=== PATIENT | female | born 1980 | race Caucasian/White ===

== ENCOUNTER 2022-05-24 08:37 | Outpatient (CLI) | payer OTHER, SELFPAY ==
--- NOTE | 2022-05-24 | USR_ITS ---
PROCEDURE INFORMATION: Exam: US Non-Invasive Physiologic Bilateral Lower Extremities Arteries, Complete Exam date and time: 05/24/2022 9:55 AM Age: 42 years old Clinical indication: Other: Abnormal foot color TECHNIQUE: Imaging protocol: Complete bilateral noninvasive physiologic studies of lower extremity arteries, 3 or more levels or single level study with provocative functional maneuvers. Images were documented and archived. Exam is complete. COMPARISON: No relevant prior studies available. FINDINGS: Right Ankle-Brachial Index: 1.12 Left Ankle-Brachial Index: 1.03 US/CV segpressure [facility] [id number] IMPRESSION: No evidence of stenosis or occlusion in the lower extremity.
== END 2022-05-24 08:38 | disposition home or self-care (01) ==
LOC: RAD 08:41
PROVIDERS: PCP Family Medicine; Visit Provider Family Medicine
DX: R23.8 Other skin changes (principal)
CPT/HCPCS: 93923

== ENCOUNTER 2022-06-08 13:25 | Outpatient (CLI) | payer OTHER, SELFPAY ==
--- NOTE | 2022-06-08 13:39 | US_ITS ---
WS: [id number] BILATERAL 3D TOMOSYNTHESIS DIGITAL DIAGNOSTIC MAMMOGRAPHY WITH CAD CLINICAL INFORMATION: RT BREAST NIPPLE DISCHARGE HISTORY: RIGHT bloody black discharge. BASELINE TECHNIQUE: Bilateral CC, MLO, and ML views. FINDINGS: Scattered fibroglandular densities bilaterally. Incidental punctate calcifications. No suspicious focal mass, asymmetry, calcifications, or architectural distortion. No evidence of gabbi gnancy. Ultrasound RIGHT areola described below. ULTRASOUND BREAST RIGHT TECHNIQUE: Ultrasound right breast focused area of concern. CLINICAL INFORMATION: RT BREAST NIPPLE DISCHARGE FINDINGS: Ultrasound RIGHT breast at the areola. Normal underlying parenchymal tissue. No suspicious cystic or solid lesions. No lesions to target for biopsy. US/US breast RT limited* [id number] IMPRESSION: BI-RADS: 2-Benign FOLLOW UP: 1 Year Follow-up Recommend return to annual screening mammography.
== END 2022-06-08 13:26 | disposition home or self-care (01) ==
PROVIDERS: PCP Family Medicine; Visit Provider Family Medicine
DX: N64.52 Nipple discharge (principal)
CPT/HCPCS: 76642; 77062; G0279

== ENCOUNTER → 2022-07-26 11:27 | Outpatient (BNVA) | payer OTHER, SELFPAY | PROVIDERS: PCP Family Medicine; Visit Provider Nurse Practitioner Family | DX: R06.02 Shortness of breath (principal) | CPT/HCPCS: 71046 ==

== ENCOUNTER 2022-08-22 17:32 | Emergency (ER) | payer OTHER, SELFPAY ==
[2022-08-22 17:44] VITALS: BP 162/102; PULSE 110; RESP 18; TEMP 36.7; O2SAT 96; BMI 33.2
--- NOTE | 2022-08-22 17:48 | W.ED.EXTPRO ---
HPI - Extremity Problem General: Chief complaint: Extremity Problem,Nontraumatic Stated complaint: left leg pain Time Seen by Provider: 08/22/22 17:34 History of Present Illness: 42-year-old female comes in today with complaints of pain in the left hip radiating down to her calf going on since Monday. Patient denies any fever. Patient denies any loss of bowel or bladder control. Patient was seen at urgent care on Monday and was recommended to be seen in the emergency department but at that time she strongly felt it was due to sciatica and did not seek further treatment. Today patient comes in due to the persistent discomfort. Patient appears in moderate pain. Patient reports improvement in symptoms when lying flat. Patient works at a desk job. Patient appears nontoxic. Patient reports a history of neuropathy in feet. Patient states that she has diabetes mellitus and controls it with diet. Associated symptoms: Deny chest pain, fever(s) or rash Review of Systems General: Reports: 10 or more systems reviewed and unremarkable except in HPI and below Const: Denies: fever(s) Card: Denies: chest pain Resp: Denies: dyspnea GI: Denies: nausea, vomiting, diarrhea or constipation : Denies: difficulty voiding or hematuria Musc: Reports: extremity pain; Denies: extremity swelling Skin/Breast: Denies: rash Neuro: Denies: weakness in extremities Physical Exam Const: COMMON NORMALS: alert HENMT: COMMON NORMALS: normocephalic HEAD & SCALP: normocephalic Neck/C-Spine: COMMON NORMALS: full ROM Resp: COMMON NORMALS: normal respiratory effort Cardio: COMMON NORMALS: regular rate RATE: regular rate GI: COMMON NORMALS: Soft to palpation PALPATION: Yes Soft to palpation : COMMON NORMALS: Yes no CVA tenderness BLADDER/KIDNEY EXAM: Yes no CVA tenderness Back/Pelvis: COMMON NORMALS: no CVA tenderness THORACIC SPINE/UPPER BACK: No thoracic spinal tenderness LUMBAR SPINE/LOWER BACK: No lumbar spinal tenderness and Yes straight leg raise positive left SACROILIAC JOINTS: Yes SI joints normal Extremity: COMMON NORMALS: normal to inspection Neuro: SENSORIUM/ORIENTATION: Yes alert Skin: COMMON NORMALS: turgor normal GENERAL SKIN EXAM: turgor normal Course Vital Signs: Vital signs: Vital Signs Temperature 98.0 F 08/22/22 17:44 Pulse Rate 94 08/22/22 19:02 Respiratory Rate 16 05/01/23 19:23 Blood Pressure 124/90 08/22/22 19:02 Pulse Oximetry 96 08/22/22 19:02 Oxygen Delivery Me thod Room Air 08/22/22 17:44 MDM - Extremity (Nontraumatic) Medical Decision Making 42-year-old female comes in today with complaints of pain radiating down the left leg. Patient denies any illness. Patient states symptoms been worse since Monday. On exam there is no palpable tenderness along the spine. Patient moves all extremities well. Distal pulses and sensation are intact. Patient does report neuropathy in bilateral feet. Vital signs are normal except for elevation in blood pressure at 162 systolic. Differential diagnosis includes but not limited to avascular necrosis of hip, intervertebral disc disease, facet arthritis, sacroiliac dysfunction, sciatica. X-ray of the hip was unremarkable. Laboratory values noted no significant abnormalities except for some mild elevation in CRP of 14. Believe patient has sciatica secondary to some nerve impingement. Patient was given medication to help control pain. We will start patient on gabapentin to see if that would help with the neuralgia, diclofenac for pain and inflammation, and hydrocodone for severe pain. Patient was recommended to stay as active as possible. Recommend follow-up with primary care for further evaluation and instructions. Recommend return to the ER for new concerns. Patient reported understanding agreed to plan. Patient was stable no signs of serious illness or injury was noted. Lab Data 08/22/22 18:20 08/22/22 18:20 Radiology Impressions Hip/Pelvis X-Ray 08/22/22 17:55 IMPRESSION: No acute findings. Laboratory Results WBC 8.4 10^3/uL (4.0-10.0) 08/22/22 18:20 RBC 4.91 10^6/uL (4.1-5.3) 08/22/22 18:20 Hgb 15.3 g/dL (11.5-15.3) 08/22/22 18:20 Hct 46.3 % (37.0-47.0) 08/22/22 18:20 MCV 94.3 fl (81-99) 08/22/22 18:20 MCH 31.2 pg (28.0-34.0) 08/22/22 18: MCHC 33.0 g/dL (30.0-36.0) 08/22/22 18:20 RDW 14.1 % (12.1-15.1) 08/22/22 18:20 Plt Count 186 10^3/cmm (130-400) 08/22/22 18:20 MPV 10.0 fL (7.4-10.4) 08/22/22 18:20 Neut % (Auto) 56.4 % 08/22/22 18:20 Lymph % (Auto) 37.2 % 08/22/22 18:20 [place] % (Auto) 5.1 % 08/22/22 18:20 Eos % (Auto) 0.6 % 08/22/22 18:20 Baso % (Auto) 0.6 % 08/22/22 18:20 Neut # (Auto) 4.74 10^3/uL (1.8-7.7) 08/22/22 18:20 Lymph # (Auto) 3.1 10^3/uL (0.8-4.8) 08/22/22 18:20 [place] # (Auto) 0.4 10^3/uL (0.2-0.9) 08/22/22 18:20 Eos # (Auto) 0.1 10^3/uL (0.0-0.8) 08/22/22 18:20 Baso # (Auto) 0.1 10^3/uL (0.0-0.1) 08/22/22 18:20 Nucleated RBC % (auto) 0 % 08/22/22 18:20 Nucleated RBCs # 0.0 /100WBC 08/22/22 18:20 ESR 7 mm/hr (0-15) 08/22/22 18:20 D-Dimer 0.30 ug/mIFEU (0-0.59) 08/22/22 18:20 Sodium 140 mmol/L (136-145) 08/22/22 18:20 Potassium 3.6 mmol/L (3.5-5.1) 08/22/22 18:20 Chloride 105 mmol/L (98-107) 08/22/22 18:20 Carbon Dioxide 25 mmol/L (22-29) 08/22/22 18:20 Anion Gap 13.6 (5-19) 08/22/22 18:20 BUN 8 mg/dL (6-20) 08/22/22 18:20 Creatinine 0.7 mg/dL (0.5-0.9) 08/22/22 18:20 GFR Calculation 92.7 mL/min (90-130) 08/22/22 18:20 Glucose 108 mg/dL (65-115) 08/22/22 18:20 Calculated Osmolality 289 mOsm/kg (285-295) 08/22/22 18:20 Calcium 8.9 mg/dL (8.5-10.5) 08/22/22 18:20 Total Bilirubin 0.4 mg/dL (0.15-1.2) 08/22/22 18:20 AST 15 U/L (0-32) 08/22/22 18:20 ALT 11 U/L (0-33) 08/22/22 18:20 Alkaline Phosphatase 73 U/L (35-105) 08/22/22 18:20 C-Reactive Protein 14.7 mg/L (0.0-4.9) H 08/22/22 18:20 Total Protein 6.9 g/dL (6.6-8.7) 08/22/22 18:20 Albumin 4.1 g/dL (3.5-5.2) 08/22/22 18:20 Globulin 2.8 g/dL (1.3-4.6) 08/22/22 18:20 Discharge Plan Discharge Patient Disposition: Home Clinical Impression: Radiculopathy Qualifiers: Spinal region: lumbosacral Qualified Code(s): M54.17 - Radiculopathy, lumbosacral region Condition: Stable Prescriptions: New gabapentin 300 mg capsule 300 mg PO BID Qty: 20 0RF hydrocodone-acetaminophen 5-325 mg tablet 1 tab PO Q8H PRN (Reason: pain (scale score 7-10)) Qty: 7 0RF diclofenac sodium 75 mg tablet,delayed release (DR/EC) 75 mg PO BID Qty: 20 0RF Rx Instructions: do not take with naproxen or ibuprofen Discharge Orders: Discharge ED (Routine); Ordered 08/22/22 Ordered By: Clayton Garcia Referrals: Lisa Love MD [Primary Care Provider] - Discharge Diet: Usual diet Discharge Activity: Increase activity as tolerated Patient Instructions: Sciatica (ED), Opioid Safety, Pain Management Activity Restrictions/Additional Instructions: Activity as tolerated. Gentle stretching and range of motion exercises. Ice or heat to the low back and hip area to help with pain and discomfort. Drink plenty of water with medication. Use gabapentin 300 mg 2 times a day for nerve pain. Use diclofenac 75 mg 1 tablet twice a day for pain and inflammation. Use hydrocodone as needed for severe pain. Use acetaminophen for further pain relief. Follow-up with primary care for further evaluation and treatment. Return to emergency department for new concerns or worsening symptoms. Coding Level of Care Code ED Network Support Specialist for Bebe Sims
--- NOTE | 2022-08-22 17:55 | XRR_ITS ---
PROCEDURE INFORMATION: Exam: XR Left Hip Exam date and time: 08/22/2022 6:04 PM Age: 42 years old Clinical indication: Hip pain; Left hip; Additional info: Radiating left hip pain TECHNIQUE: Imaging protocol: Radiologic exam of the left hip. Views: 2 or 3 views hip with pelvis when performed. COMPARISON: No relevant prior studies available. FINDINGS: Bones/joints: Unremarkable. No acute fracture. Soft tissues: Unremarkable. XR/XR hip LT 2-3V wo/w pel* [id number] IMPRESSION: No acute findings.
[2022-08-22 18:29] LABS: Basophils # 0.1 10^3/uL (0.0-0.1); Basophils % 0.6 %; Eosinophils # 0.1 10^3/uL (0.0-0.8); Eosinophils % 0.6 %; Hematocrit 46.3 % (37.0-47.0); Hemoglobin 15.3 g/dL (11.5-15.3); Lymphocytes # 3.1 10^3/uL (0.8-4.8); Lymphocytes % 37.2 %; Mean Corpuscular Hemoglobin 31.2 pg (28.0-34.0); Mean Corpuscular Volume 94.3 fl (81-99); Monocytes # 0.4 10^3/uL (0.2-0.9); Monocytes % 5.1 %; Neutrophils # 4.74 10^3/uL (1.8-7.7); Neutrophils % 56.4 %; Nucleated Red Blood Cells % 0 %; Platelet Count 186 10^3/cmm (130-400); Red Blood Count 4.91 10^6/uL (4.1-5.3); Red Cell Distribution Width 14.1 % (12.1-15.1); White Blood Count 8.4 10^3/uL (4.0-10.0)
[2022-08-22 18:31] LABS: Erythrocyte Sedimentation Rate 7 mm/hr (0-15)
[2022-08-22] MEDS: ketorolac 30 mg/mL INJ 15 MG IVP (18:44)
[2022-08-22] MEDS: ondansetron 2 mg/ML SDV 2 mL 4 MG IVP (18:45)
[2022-08-22] MEDS: morphine 4 mg/mL SDV 1 mL IVP ×2 (18:45→19:23)
[2022-08-22 18:46] LABS: Alanine Aminotransferase 11 U/L (0-33); Albumin Level 4.1 g/dL (3.5-5.2); Alkaline Phosphatase 73 U/L (35-105); Anion Gap 13.6 (5-19); Aspartate Amino Transferase 15 U/L (0-32); Blood Urea Nitrogen 8 mg/dL (6-20); C Reactive Protein 14.7 mg/L (0.0-4.9); Calcium 8.9 mg/dL (8.5-10.5); Carbon Dioxide 25 mmol/L (22-29); Chloride 105 mmol/L (98-107); Globulin 2.8 g/dL (1.3-4.6); Glomerular Filtration Rate 92.7 mL/min (90-130); Glucose 108 mg/dL (65-115); Osmolality Calculated 289 mOsm/kg (285-295); Potassium 3.6 mmol/L (3.5-5.1); Sodium 140 mmol/L (136-145); Total Bilirubin 0.4 mg/dL (0.15-1.2); Total Protein 6.9 g/dL (6.6-8.7)
[2022-08-22 19:02] VITALS: BP 124/90; PULSE 94; RESP 14; O2SAT 96
[2022-08-22] MEDS: gabapentin 300 mg Capsule PO (19:22)
[2022-08-22 19:23] VITALS: RESP 16
[2022-08-22 19:48] VITALS: BP 130/72; PULSE 86; RESP 16; O2SAT 99
== END 2022-08-22 19:50 | disposition home or self-care (01) ==
PROVIDERS: Emergency Provider Nurse Practitioner Family; PCP Family Medicine
DX: M54.17 Radiculopathy, lumbosacral region (principal)
CPT/HCPCS: 36415; 73502; 80053; 85025; 85378; 85651; 86140; 96374; 96375; 96376; 99284; J1885; J2270; J2405

== ENCOUNTER 2022-10-28 07:16 | Outpatient (CLI) | payer OTHER, SELFPAY ==
--- NOTE | 2022-10-28 07:27 | MR_ITS ---
WS: [id number] MRI LUMBAR SPINE NONCONTRAST HISTORY: Sciatica, pain IN L LEG COMPARISON: None available. TECHNIQUE: Sagittal and axial multisequence imaging is submitted. Mild straightening of the normal lumbar lordosis. No fractures or marrow edema. Disc spaces are mildly narrowed and desiccated, most significant at L3-4, L4-5 and L5-S1. Conus terminates normally at L1-2 disc level. L1-L2: Normal. L2-L3: Normal. L3-L4: Mild annular disc bulge with a central disc protrusion. There is mild encroachment upon the ve ntral thecal sac and the subarticular recesses. Mild disc contact upon the traversing L4 nerve roots. Disc is slightly asymmetrically bulging to the LEFT with no additional stenosis. L4-L5: Diffuse moderate annular disc bulging with mild ligamentum flavum and facet arthritis. There i s a small central disc protrusion contacting the ventral thecal sac. Mild central and bilateral subar ticular recess stenosis. Disc contacts the traversing L5 nerve roots. Mild disc encroachment into the subarticular recesses. L5-S1: Diffuse annular disc bulging with moderate central disc protrusion. Disc protrusion extends gr eatest to the LEFT and extends into the LEFT subarticular recess. There is contact on the LEFT sean sing S1 nerve root. S1 nerve root is being displaced by the disc protrusion. Disc bulging versus prot rusions and osteophytes extend into the foramina. Moderate bilateral foraminal stenosis with mild tamir tral stenosis. MR/MR lumbar spine wo con* [id number] IMPRESSION: 1. Moderate size central to LEFT subarticular recess disc protrusion at L5-S1. Disc contacts and displaces the LEFT S1 nerve root in the subarticular recess. 2. Mild central with moderate bilateral foraminal stenosis at L5-S1 due to com bination of disc disease and osteophytes and facet arthritis. 3. Disc bulging with a central disc protrusion at L3-4. Mild disc contact on t he traversing L4 nerve roots. 4. Diffuse disc bulging with a small central disc protrusion at L4-5. There is mild disc contact on the traversing L5 nerve roots and subarticular recesses.
--- NOTE | 2022-10-28 08:11 | XR_ITS ---
WS: [id number] Right knee, 3 views, 10/28/2022 Clinical Data: PAIN IN R KNEE Comparison: None. Findings: No fractures or dislocations are seen. The joint spaces are normal. The patella is intact. The soft t issues are unremarkable. XR/XR knee RT 3V* [id number] Impression: Negative right knee. Kellgren-Marcello Classification: grade 0 (none): definite absence of x-ray darrell nges of osteoarthritis
== END 2022-10-28 07:17 | disposition home or self-care (01) ==
PROVIDERS: PCP Family Medicine; Visit Provider Family Medicine
DX: M51.17 Intervertebral disc disorders with radiculopathy, lumbosacral region (principal); M48.07 Spinal stenosis, lumbosacral region; M25.562 Pain in left knee
CPT/HCPCS: 72148; 73562

== ENCOUNTER 2022-11-07 13:08 | Outpatient (CLI) | payer OTHER, SELFPAY ==
--- NOTE | 2022-11-07 13:41 | USCV_ITS ---
Emani Dixon Age: 42 Gender: F : 1980 Exam Date: 11/07/2022 14:00 Ordering Phys: Lisa Love MD Technologist: [place] [facility] [place]: [place] BP: 125 / 63 HR: 62 Rhythm: Sinus Technical Quality: Adequate MEASUREMENTS (Male / Female) Normal Values 2D ECHO LV Chamber Size 4.8 cm RV Chamber Size 2.8 cm LVOT Diameter 2.0 cm LV Ejection Fraction MOD 2C 53.9 % LV Ejection Fraction 2C AL 55.4 % LA Diameter 3.3 cm LA Width 4.1 cm LA Height 4.6 cm RA Width 3.2 cm RA Height 4.2 cm Aorta at Sinotubular Diameter 2.6 cm IVC Diameter 1.7 cm M-MODE Aortic Annulus Diameter 3.1 cm LA Ao Ratio MM 1.1 MV E Point Septal Separation 0.5 cm DOPPLER AV Peak Velocity 146.0 cm/s LVOT Peak Velocity 105.0 cm/s AV Area Cont Eq vti 2.4 cm squared AV Area Cont Eq pk 2.3 cm squared MV Peak Velocity 88.0 cm/s MV Area PHT 3.7 cm squared Mitral E to A Ratio 1.3 MV E' Velocity 58.0 cm/s Mitral E to MV E' Ratio 8.8 Mitral E to LV E' Lateral Ratio 7.2 Mitral E to LV E' Septal Ratio 11.5 TR Peak Velocity 114.0 cm/s TR Peak Gradient 5.2 mmHg TV Peak E Velocity 83.0 cm/s Right Atrial Pressure 3.0 mmHg Pulmonary Artery Systolic Pressu 8.2 mmHg PV Peak Velocity 79.0 cm/s FINDINGS Left Ventricle Normal left ventricular size, systolic function and wall thickness, with no regional wall motion abnormalities. Left ventricular ejection fraction is estimated at 65 %. Normal diastolic function. Right Ventricle Normal right ventricular size and systolic function. Right ventricular systolic pressure 8.2 mmHg. Right Atrium Normal right atrial size. 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 Left Atrium Mildly increased left atrial size. Mitral Valve Structurally normal mitral valve. No mitral valve stenosis. Trace mitral valve regurgitation. Aortic Valve Structurally normal trileaflet aortic valve. No aortic valve stenosis. No aortic valve regurgitation. Tricuspid Valve Structurally normal tricuspid valve. No tricuspid valve stenosis. Trace tricuspid valve regurgitation. Pulmonic Valve Pulmonic valve not well visualized. No pulmonary valve stenosis. Trace pulmonary valve regurgitation. Pericardium No pericardial effusion. Aorta Normal size aortic root and proximal ascending aorta. IVC Normal IVC dimension with >50% respiratory change of the inferior vena cava. CONCLUSIONS 1. Normal left ventricular size, systolic function and wall thickness, with no regional wall motion abnormalities. Left ventricular ejection fraction is estimated at 65 %. Normal diastolic function. 2. 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 3. No prior similar studies to compare. Naomi White MD (Electronically Signed) Final Date: 11 November 2022 23:31 S
== END 2022-11-07 13:09 | disposition home or self-care (01) ==
PROVIDERS: PCP Family Medicine; Visit Provider Family Medicine
DX: R60.9 Edema, unspecified (principal)
CPT/HCPCS: 93306

== ENCOUNTER 2023-02-04 13:02 | Emergency (ER) | payer OTHER, SELFPAY ==
[2023-02-04 13:05] VITALS: BP 140/96; PULSE 93; RESP 20; TEMP 36.7; O2SAT 97; BMI 32.8
--- NOTE | 2023-02-04 13:14 | ED_ITS ---
HPI - Nausea/Vomiting/Diarrhea General: Chief complaint: Nausea/Vomiting/Diarrhea Stated complaint: N/V Time Seen by Provider: 02/04/23 13:09 Source: patient Mode of arrival: ambulatory History of Present Illness: 42-year-old female presents emergency room with nausea vomiting for the last 6 hours. No fever sweats chills no cough no shortness of breath is a history of Type II diabetes mellitus. Patient having bilious vomit localizes pain to the right lower quadrant. No hematochezia melena hematemesis coffee-ground emesis no dysuria urgency or frequency MD elicited complaint: nausea and vomiting Onset (ago): hour(s) (6) Description of vomiting: bilious Associated nausea: Yes Associated abdominal pain: Yes Location of pain: RLQ Severity: moderate Quality: cramping Exacerbating factors: none Relieving factors: none Associated symtoms: Reports anorexia and nausea; Denies altered mental status, anxiety, bloating, change in vision, chest pain, cough, diaphoresis, decreased urine output, dizziness, dysuria, epistaxis, fatigue, fecal incontinence, fevers/chills, headache(s), malaise, myalgias, numbness, palpitations, rash, short of breath, syncope, tenesmus, tinnitus or weakness Review of Systems Const: Denies: fever(s), chills, fatigue, malaise or diaphoresis Eyes: Denies: change in vision ENMT: Denies: tinnitus or epistaxis Card: Denies: chest pain, palpitations or syncope Resp: Denies: dyspnea GI: Reports: nausea; Denies: abdominal pain, bloating or fecal incontinence : Denies: dysuria, urinary frequency or urinary urgency Musc: Denies: neck pain or back pain Skin/Breast: Denies: rash Neuro: Denies: headache(s) or dizziness Psych: Denies: anxiety PFSH ED PFSH: Family History Denies family history of Diabetes CAD (coronary artery disease) Cancer Hypertension Stroke Social History Smoking and tobacco/nicotine status: current every day tobacco/nicotine user cigarettes Packs smoked per day: 1 Years cigarettes smoked: 30 Alcohol intake: current Alcohol intake frequency: 0-2 Drinks per Day Substance/Drug Use: never Lives independently: Yes Household members: none Housing: House Marital status: Single Number of children: 0 Pets and animals: Yes Pets & animals: cat(s) Physical Exam Const: EXAM LIMITATIONS: no altered mental status GENERAL APPEARANCE: cooperative and comfortable ORIENTATION/CONSCIOUSNESS: Yes awake, Yes oriented to person, Yes oriented to place and Yes oriented to time HENMT: COMMON NORMALS: normocephalic, atraumatic and hearing grossly normal bilaterally HEAD & SCALP: normocephalic and atraumatic Resp: COMMON NORMALS: normal respiratory effort, No retractions, No use of accessory muscles and clear to auscultation bilaterally AUSCULTATION: clear to auscultation bilaterally Cardio: COMMON NORMALS: regular rate, regular rhythm and No murmurs present (Cardio) RATE: regular rate RHYTHM: regular rhythm GI: COMMON NORMALS: No hepatosplenomegaly present AUSCULTATION: Yes normoactive bowel sounds PALPATION: Yes Tenderness to palpation present (GI) Details: RLQ, No Guarding due to palpation present (GI) and Yes No hepatosplenomegaly present OTHER: No peritoneal signs Extremity: COMMON NORMALS: normal to inspection, capillary refill normal and no calf tenderness GENERAL: Yes edema (Lower extremity.) Neuro: SENSORIUM/ORIENTATION: Yes oriented to person, Yes oriented to place and Yes oriented to time Skin: COMMON NORMALS: no rashes or lesions noted GENERAL SKIN EXAM: no rashes or lesions noted Course Vital Signs: Vital signs: Vital Signs Temperature 98.0 F 02/04/23 13:05 Pulse Rate 77 02/04/23 16:01 Respiratory Rate 18 02/04/23 16:01 Blood Pressure 127/67 02/04/23 16:01 Pulse Oximetry 99 02/04/23 16:01 Oxygen Delivery Me thod Room Air 02/04/23 13:05 MDM - Nausea/Vomiting/Diarrhea Medical Decision Making Labs and imaging no acute findings. Very mild elevation in anion gap patient given fluids is feeling better. Discharged home with promethazine to use as needed return if has further problems. Clear liquid diet and advance as tolerated Lab Data 02/04/23 13:15 02/04/23 13:42 Radiology Impressions Abdomen/Pelvis CT 02/04/23 13:22 IMPRESSION: 1. Limited noncontrast examination without CT evidence of acute intra-abdominal or pelvic pathology. 2. Additional findings, as above. Laboratory Results WBC 10.62 10^3/uL (3.29-11.43) 02/04/23 13:15 RBC 5.66 10^6/uL (3.85-5.65) H 02/04/23 13:15 Hgb 17.60 g/dL (11.27-16.99) H 02/04/23 13:15 Hct 51.9 % (36-47) H 02/04/23 13:15 MCV 91.7 fl (85-98) 02/04/23 13:15 MCH 31.1 pg (27-33) 02/04/23 13:15 MCHC 33.9 g/dL (30-55) 02/04/23 13:15 RDW 15.3 % (12.1-15.1) H 02/04/23 13:15 Plt Count 204 10^3/cmm (157-399) 02/04/23 13:15 MPV 10.6 fL (7.4-10.4) H 02/04/23 13:15 Neut % (Auto) 84.5 % 02/04/23 13:15 Lymph % (Auto) 11.3 % 02/04/23 13:15 [place] % (Auto) 3.3 % 02/04/23 13:15 Eos % (Auto) 0.0 % 02/04/23 13:15 Baso % (Auto) 0.6 % 02/04/23 13:15 Neut # (Auto) 8.98 10^3/uL (1.8-7.7) H 02/04/23 13:15 Lymph # (Auto) 1.2 10^3/uL (0.8-4.8) 02/04/23 13:15 [place] # (Auto) 0.4 10^3/uL (0.2-0.9) 02/04/23 13:15 Eos # (Auto) 0.0 10^3/uL (0.0-0.8) 02/04/23 13:15 Baso # (Auto) 0.1 10^3/uL (0.0-0.1) 02/04/23 13:15 Nucleated RBC % (auto) 0 % 02/04/23 13:15 Nucleated RBCs # 0.0 /100WBC 02/04/23 13:15 Sodium 141 mmol/L (136-145) 02/04/23 13:42 Potassium 4.1 mmol/L (3.5-5.1) 02/04/23 13:42 Chloride 103 mmol/L (98-107) 02/04/23 13:42 Carbon Dioxide 22 mmol/L (22-29) 02/04/23 13:42 Anion Gap 20.1 (5-19) H 02/04/23 13:42 BUN 7 mg/dL (6-20) 02/04/23 13:42 Creatinine 0.7 mg/dL (0.5-0.9) 02/04/23 13:42 GFR Calculation 92.7 mL/min (90-130) 02/04/23 13:42 Glucose 165 mg/dL (65-115) H 02/04/23 13:42 Calculated Osmolality 294 mOsm/kg (285-295) 02/04/23 13:42 Calcium 9.5 mg/dL (8.5-10.5) 02/04/23 13:42 Total Bilirubin 0.8 mg/dL (0.15-1.2) 02/04/23 13:42 AST 15 U/L (0-32) 02/04/23 13:42 ALT 12 U/L (0-33) 02/04/23 13:42 Alkaline Phosphatase 84 U/L (35-105) 02/04/23 13:42 Total Protein 7.5 g/dL (6.6-8.7) 02/04/23 13:42 Albumin 4.8 g/dL (3.5-5.2) 02/04/23 13:42 Globulin 2.7 g/dL (1.3-4.6) 02/04/23 13:42 Lipase 20 U/L (13-60) 02/04/23 13:42 HCG, Qual Negative (Negative) 02/04/23 13:42 All radiology interpretation(s) finalized by discharge Discharge Plan Discharge Patient Disposition: Home Clinical Impression: Nausea and vomiting, Gastroenteritis Condition: Stable Prescriptions: New promethazine 25 mg tablet 25 mg PO Q6H PRN (Reason: nausea and vomiting) Qty: 20 0RF No Action gabapentin 300 mg capsule 300 mg PO TID hydrocodone-acetaminophen 5-325 mg tablet 1 tab PO Q8H PRN (Reason: pain (scale score 7-10)) Qty: 7 0RF Discharge Orders: Discharge ED (Routine); Ordered 02/04/23 Ordered By: Boris Rebollar Referrals: Lisa Love MD [Primary Care Provider] - Discharge Diet: Clear Liquid Discharge Activity: Increase activity as tolerated Patient Instructions: Gastroenteritis (ED), Opioid Safety, Pain Management Coding Level of Care Code ED Marketing Automation Analyst for Bebe Sims
[2023-02-04 13:21] LABS: Basophils # 0.1 10^3/uL (0.0-0.1); Basophils % 0.6 %; Hematocrit 51.9 % (36-47); Lymphocytes # 1.2 10^3/uL (0.8-4.8); Lymphocytes % 11.3 %; Mean Corpuscular HGB Conc 33.9 g/dL (30-55); Mean Corpuscular Hemoglobin 31.1 pg (27-33); Mean Corpuscular Volume 91.7 fl (85-98); Mean Platelet Volume 10.6 fL (7.4-10.4); Monocytes # 0.4 10^3/uL (0.2-0.9); Monocytes % 3.3 %; Neutrophils # 8.98 10^3/uL (1.8-7.7); Neutrophils % 84.5 %; Nucleated Red Blood Cells % 0 %; Platelet Count 204 10^3/cmm (157-399); Red Blood Count 5.66 10^6/uL (3.85-5.65); Red Cell Distribution Width 15.3 % (12.1-15.1); White Blood Count 10.62 10^3/uL (3.29-11.43)
--- NOTE | 2023-02-04 13:22 | CTR_ITS ---
PROCEDURE INFORMATION: Exam: CT Abdomen And Pelvis Without Contrast Exam date and time: 02/04/2023 2:45 PM Age: 42 years old Clinical indication: Nausea and vomiting; Additional info: Abdominal pain TECHNIQUE: Imaging protocol: Computed tomography of the abdomen and pelvis without contrast. Axial, coronal and sagittal reformatted images were created and reviewed. Radiation optimization: All CT scans at this facility use at least one of these dose optimization techniques: automated exposure control; mA and/or kV adjustment per patient size (includes targeted exams where dose is matched to clinical indication); or iterative reconstruction. REPORTING DATA: Count of CT and Cardiac NM exams in prior 12 months: This patient has received 0 known CTs and 0 known cardiac nuclear medicine studies in the 12 months prior to the current study. COMPARISON: CR XR hip LT 2-3V wo/w pel* [id number] 08/22/2022 6:04 PM RADIATION DOSE METRICS: Total DLP (mGy-cm): 940.55 FINDINGS: Diaphragm: Small hiatal hernia. Liver: Unremarkable. Gallbladder and bile ducts: Subtle dependent hyperattenuation in the gallbladder lumen, possibly secondary to sludge and/or small stones. Pancreas: Unremarkable. Spleen: Mild splenomegaly. Adrenal glands: Normal. No mass. Kidneys and ureters: No mass. No radiodense calculi. No hydronephrosis. Stomach and bowel: No bowel wall thickening. No obstruction. No pneumatosis. Appendix: Normal. Intraperitoneal space: Trace nonspecific free pelvic fluid, likely physiologic. No organized fluid collection. No free air. Vasculature: Unremarkable. No aneurysm. Lymph nodes: No pathologically enlarged lymph nodes. Urinary bladder: Unremarkable as visualized. Reproductive: Unremarkable. Bones/joints: No acute osseous abnormality. Mild degenerative changes. Soft tissues: Nonspecific soft tissue stranding in the subcutaneous tissues along the posterior aspect of the lower lumbar spine, nonspecific in appearance. CT/CT abdomen pelvis wo con [id number] IMPRESSION: 1. Limited noncontrast examination without CT evidence of acute intra-abdominal or pelvic pathology. 2. Additional findings, as above.
[2023-02-04] MEDS: ondansetron 2 mg/ML SDV 2 mL 4 MG IVP (13:41)
[2023-02-04 14:01] VITALS: BP 106/92; PULSE 66; RESP 20; O2SAT 94
[2023-02-04 14:30] LABS: HCG, Serum Qual Negative (Negative)
[2023-02-04 14:39] LABS: Alanine Aminotransferase 12 U/L (0-33); Albumin Level 4.8 g/dL (3.5-5.2); Alkaline Phosphatase 84 U/L (35-105); Anion Gap 20.1 (5-19); Aspartate Amino Transferase 15 U/L (0-32); Blood Urea Nitrogen 7 mg/dL (6-20); Calcium 9.5 mg/dL (8.5-10.5); Carbon Dioxide 22 mmol/L (22-29); Chloride 103 mmol/L (98-107); Globulin 2.7 g/dL (1.3-4.6); Glomerular Filtration Rate 92.7 mL/min (90-130); Glucose 165 mg/dL (65-115); Lipase 20 U/L (13-60); Osmolality Calculated 294 mOsm/kg (285-295); Potassium 4.1 mmol/L (3.5-5.1); Sodium 141 mmol/L (136-145); Total Bilirubin 0.8 mg/dL (0.15-1.2); Total Protein 7.5 g/dL (6.6-8.7)
[2023-02-04 15:00] VITALS: BP 150/103; PULSE 64; RESP 20; O2SAT 99
[2023-02-04] MEDS: promethazine 25 mg/mL SDV 1 mL IM (15:43)
[2023-02-04] MEDS: sodium chloride 0.9% 1,000 ML 999 ML IV (15:46)
[2023-02-04 16:01] VITALS: BP 127/67; PULSE 77; RESP 18; O2SAT 99
== END 2023-02-04 17:11 | disposition home or self-care (01) ==
PROVIDERS: Emergency Provider Family Medicine; PCP Family Medicine
DX: K52.9 Noninfective gastroenteritis and colitis, unspecified (principal); F17.210 Nicotine dependence, cigarettes, uncomplicated
CPT/HCPCS: 74176; 80053; 83690; 84703; 85025; 96372; 99285; J2405; J2550; J7030

== ENCOUNTER → 2023-02-28 09:23 | Outpatient (BNVA) | payer OTHER, SELFPAY | PROVIDERS: PCP Family Medicine; Referring Provider Thoracic Surgery (Cardiothoracic Vascular Surgery); Visit Provider Internal Medicine | DX: E11.9 Type 2 diabetes mellitus without complications (principal); R79.89 Other specified abnormal findings of blood chemistry; Z83.49 Family history of other endocrine, nutritional and metabolic diseases | CPT/HCPCS: 36415; 82627 ==

== ENCOUNTER 2023-04-07 07:15 | Outpatient (CLI) | payer OTHER, SELFPAY ==
--- NOTE | 2023-04-07 07:17 | US_ITS ---
WS: [id number] Exam: US abdomen limited [id number] Date/Time of Exam: 04/07/2023 7:18 AM Reason For Exam: TYPE 2 DN W/O COMPLICATIONS There are stones and sludge like material in the gallbladder. No sign of gallbladder wall thickening or edema. The common bile duct is not dilated and measures 2.5 mm in greatest diameter. The liver is not enlarged and measures 14.87 cm in greatest dimension. No intrahepatic ductal dilatation or hepati c mass. The portal vein demonstrates hepatopetal flow. The IVC shows patent flow. The abdominal aorta is normal in caliber. The pancreas is unremarkable as visualized. Unremarkable RIGHT kidney measures 11.67 x 5 x 5.42 cm. No mass or ascites in the RIGHT abdomen. IMPRESSION: 1. Tiny stones and sludge like material in the gallbladder. No sign of acute cholecystitis. 2. No other significant finding in the RIGHT abdomen.
== END 2023-04-07 07:16 | disposition home or self-care (01) ==
LOC: RAD 07:15
PROVIDERS: PCP Family Medicine; Visit Provider Family Medicine
DX: E11.9 Type 2 diabetes mellitus without complications (principal); K80.20 Calculus of gallbladder without cholecystitis without obstruction
CPT/HCPCS: 76705

== ENCOUNTER 2023-06-29 08:26 | Outpatient (CLI) | payer OTHER, SELFPAY ==
--- NOTE | 2023-06-29 08:32 | MM_ITS ---
WS: [id number] BILATERAL 3D TOMOSYNTHESIS DIGITAL DIAGNOSTIC MAMMOGRAPHY WITH CAD CLINICAL INFORMATION: NIPPLE DISCHARGE HISTORY: Bilateral bloody nipple discharge COMPARISON: 06/08/2022 TECHNIQUE: Bilateral CC, MLO, and ML views. FINDINGS: Scattered fibroglandular densities bilaterally. Subareolar trabecular thickening in both breasts. Ult rasound both breast is pending. Incidental punctate calcifications. No other suspicious mammographic abnormalities. ULTRASOUND BREAST BILATERAL TECHNIQUE: Ultrasound bilateral breast focused area of concern. CLINICAL INFORMATION: NIPPLE DISCHARGE COMPARISON: 06/08/2022 FINDINGS: RIGHT BREAST: Ultrasound subareolar RIGHT breast. Subareolar ductal ectasia with internal debris. No cystic or solid lesions to target for biopsy LEFT BREAST: Ultrasound subareolar LEFT breast.Subareolar ductal ectasia with internal debris. No cys tic or solid lesions to target for biopsy IMPRESSION: MM/[place] [id number] BI-RADS: 2-Benign FOLLOW UP: 1 Year Follow-up Recommend return to annual screening mammography.
== END 2023-06-29 08:27 | disposition home or self-care (01) ==
LOC: RAD 08:28
PROVIDERS: PCP Family Medicine; Visit Provider Family Medicine
DX: N60.42 Mammary duct ectasia of left breast (principal); N60.41 Mammary duct ectasia of right breast
CPT/HCPCS: 76642; 77062; G0279

== ENCOUNTER 2023-11-23 15:15 | Outpatient (CLI) | payer OTHER, SELFPAY ==
--- NOTE | 2023-11-23 15:33 | US_ITS ---
WS: [id number] ULTRASOUND ABDOMEN CLINICAL INFORMATION: PAIN. CHOLELITHIASIS COMPARISON: Ultrasound 2022 FINDINGS: Technically difficult study due to body habitus Liver Size: Upper limits of normal Craniocaudal length: 15.9 cm. Echogenicity: Coarse compatible with fatty infiltration Surface nodularity: None. Mass (size and location): None. Bile ducts Intrahepatic ducts: Normal. Common bile duct diameter: 0.6 cm. Gallbladder Cholelithiasis Gallstones: Present Gallbladder sludge: None. Gallbladder wall thickening: None. Pericholecystic fluid: None. Sonographic Berry sign: Absent. Pancreas Normal as visualized. Spleen Splenomegaly: Mild Craniocaudal length: 12.1 cm. Right kidney: Normal. Hydronephrosis: None. Size: 11.4 cm x 5.3 cm x 5.7 cm Left kidney: Normal. Hydronephrosis: None. Size: 10.4 cm x 5.1 cm x 5.1 cm. Abdominal aorta and IVC Visualized portions are normal. Ascites: None. US/US abdomen complete* [id number] IMPRESSION: 1. Liver size upper limits of normal with fatty infiltration. 2. Cholelithiasis. No gallbladder wall thickening or pericholecystic fluid. 3. Common bile duct upper limits of normal at 6 mm. This is progressed compare d to the prior ultrasound 2022. Recommend further evaluation with MRCP. Recomme nd correlation with biliary function studies. 4. Mild splenomegaly. 5. No hydronephrosis in either kidney.
== END 2023-11-23 15:17 | disposition home or self-care (01) ==
PROVIDERS: PCP Family Medicine; Visit Provider Family Medicine
DX: K80.20 Calculus of gallbladder without cholecystitis without obstruction (principal); K76.0 Fatty (change of) liver, not elsewhere classified; R10.9 Unspecified abdominal pain
CPT/HCPCS: 76700

== ENCOUNTER 2024-11-29 15:48 | Emergency (ER) | payer OTHER, SELFPAY ==
[2024-11-29 15:49] VITALS: BP 126/85; PULSE 108; RESP 16; TEMP 36.7; O2SAT 96; BMI 36.9
--- NOTE | 2024-11-29 16:05 | W.ED.NAVMDI ---
HPI - Nausea/Vomiting/Diarrhea General: Chief complaint: Nausea/Vomiting/Diarrhea Stated complaint: N/V/D Time Seen by Provider: 11/29/24 16:03 Source: patient Mode of arrival: ambulatory Limitations: no limitations History of Present Illness: Patient is a 44-year-old female presents to ED today with a complaint of nausea, vomiting, diarrhea. She states vomiting began approximately 36 hours ago. She does recall eating [place] before symptoms started. She states watery diarrhea started last night. She has not had any bloody stools. Has not noticed any hematemesis. She is not having any abdominal pain whatsoever. No fevers. No sick contacts. Her main complaint is significant nausea. MD elicited complaint: nausea, vomiting and diarrhea Onset (ago): day(s) Description of diarrhea: watery Associated nausea: Yes Associated abdominal pain: No Location of pain: None Exacerbating factors: eating Relieving factors: none Associated symtoms: Reports nausea; Denies chest pain, dizziness, dysuria, fatigue, headache(s) or malaise Related Data Home Medications ?Medication ?Instructions ?Recorded ?Confirmed gabapentin 300 mg capsule 300 mg PO TID 12/15/22 02/28/23 sertraline 50 mg tablet (Zoloft) 50 mg PO DAILY 02/28/23 02/28/23 Previous Rx's ?Medication ?Instructions ?Recorded hydrocodone 5 mg-acetaminophen 325 1 tab PO Q8H PRN pain (scale score 08/22/22 mg tablet 7-10) #7 tabs promethazine 25 mg tablet 25 mg PO Q6H PRN nausea and 02/04/23 vomiting #20 tabs ondansetron 4 mg disintegrating 4 mg PO Q8H PRN nausea and 11/29/24 tablet vomiting #14 tabs Allergies Allergy/AdvReac Type Severity Reaction Status Date / Time sulfamethoxazole (From Allergy Unknown Verified 02/28/23 07:42 Bactrim) trimethoprim (From Bactrim) Allergy Unknown Verified 02/28/23 07:42 Review of Systems Const: Denies: fever(s), chills, body aches, fatigue or malaise Card: Denies: chest pain Resp: Denies: dyspnea GI: Reports: nausea, vomiting and diarrhea; Denies: abdominal pain, GI cramping, hematochezia or melena : Denies: flank pain, dysuria or hematuria Musc: Denies: neck pain, back pain, extremity pain, extremity swelling, joint pain or joint swelling Skin/Breast: Denies: rash Neuro: Denies: headache(s), numbness in extremities, weakness in extremities, sensory changes or dizziness PFS ED PFSH: Medical History Diabetes mellitus Family History Denies family history of Diabetes CAD (coronary artery disease) Cancer Hypertension Stroke Social History Smoking and tobacco/nicotine status: current every day tobacco/nicotine user cigarettes Packs smoked per day: 1 Years cigarettes smoked: 30 Alcohol intake: current Alcohol intake frequency: 0-2 Drinks per Day Substance/Drug Use: never Lives independently: Yes Household members: none Housing: House Marital status: Single Number of children: 0 Pets and animals: Yes Pets & animals: cat(s) Physical Exam Const: COMMON NORMALS: patient oriented x3, no limitations, alert and well nourished GENERAL APPEARANCE: cooperative NUTRITIONAL APPEARANCE: overweight ORIENTATION/CONSCIOUSNESS: Yes awake, Yes oriented to person, Yes oriented to place and Yes oriented to time OTHER: flushed/sweating; states she just came from outside; feels very nauseous Eye: COMMON NORMALS: no scleral icterus Resp: COMMON NORMALS: normal respiratory effort and clear to auscultation bilaterally AUSCULTATION: clear to auscultation bilaterally Cardio: COMMON NORMALS: regular rhythm RATE: tachycardic (mild 102 during exam) RHYTHM: regular rhythm GI: COMMON NORMALS: Normal to inspection, nondistended, normoactive bowel sounds present, Soft to palpation, non-tender, No hepatosplenomegaly present and no masses PALPATION: Yes Soft to palpation and Yes No hepatosplenomegaly present : COMMON NORMALS: Yes no CVA tenderness BLADDER/KIDNEY EXAM: Yes no CVA tenderness Back/Pelvis: COMMON NORMALS: no CVA tenderness Neuro: COMMON NORMALS: patient oriented x3 SENSORIUM/ORIENTATION: Yes alert, Yes oriented to person, Yes oriented to place and Yes oriented to time Course Vital Signs: Vital signs: Vital Signs Temperature 98.1 F 11/29/24 15:49 Pulse Rate 108 H 11/29/24 15:49 Respiratory Rate 16 11/29/24 15:49 Blood Pressure 126/85 11/29/24 15:49 Pulse Oximetry 96 11/29/24 15:49 Oxygen Delivery Me thod Room Air 11/29/24 15:49 MDM - Nausea/Vomiting/Diarrhea Medical Decision Making Patient has not had any vomiting here in the emergency department. Her vital signs are stable. Blood work overall is nonactionable. She was given IV fluids and Zofran. Will send her home with Zofran. Given her history, I suspect at this time gastroenteritis. Return to ED precautions were discussed with patient. Medical Records I reviewed the patient's medical records. Lab Data I reviewed the patient's lab results. 11/29/24 16:20 11/29/24 16:20 Laboratory Results WBC 12.55 10^3/uL (3.29-11.43) H 11/29/24 16:20 RBC 5.75 10^6/uL (3.85-5.65) H 11/29/24 16:20 Hgb 16.70 g/dL (11.27-16.99) 11/29/24 16:20 Hct 50.4 % (36-47) H 11/29/24 16:20 MCV 87.7 fl (85-98) 11/29/24 16:20 MCH 29.0 pg (27-33) 11/29/24 16:20 MCHC 33.1 g/dL (30-55) 11/29/24 16:20 RDW 14.9 % (12.1-15.1) 11/29/24 16:20 Plt Count 210 10^3/cmm (157-399) 11/29/24 16:20 MPV 9.6 fL (7.4-10.4) 11/29/24 16:20 Neut % (Auto) 72.1 % 11/29/24 16:20 Lymph % (Auto) 22.1 % 11/29/24 16:20 [place] % (Auto) 5.1 % 11/29/24 16:20 Eos % (Auto) 0.0 % 11/29/24 16:20 Baso % (Auto) 0.4 % 11/29/24 16:20 Neut # (Auto) 9.05 10^3/uL (1.8-7.7) H 11/29/24 16:20 Lymph # (Auto) 2.8 10^3/uL (0.8-4.8) 11/29/24 16:20 [place] # (Auto) 0.6 10^3/uL (0.2-0.9) 11/29/24 16:20 Eos # (Auto) 0.0 10^3/uL (0.0-0.8) 11/29/24 16:20 Baso # (Auto) 0.1 10^3/uL (0.0-0.1) 11/29/24 16:20 Nucleated RBC % (auto) 0 % 11/29/24 16:20 Nucleated RBCs # 0.0 /100WBC 11/29/24 16:20 Sodium 137 mmol/L (136-145) 11/29/24 16:20 Potassium 3.6 mmol/L (3.5-5.1) 11/29/24 16:20 Chloride 100 mmol/L (98-107) 11/29/24 16:20 Carbon Dioxide 22 mmol/L (22-29) 11/29/24 16:20 Anion Gap 18.6 (5-19) 11/29/24 16:20 BUN 7 mg/dL (6-20) 11/29/24 16:20 Creatinine 0.8 mg/dL (0.5-0.9) 11/29/24 16:20 GFR Calculation 78.7 mL/min (90-130) L 11/29/24 16:20 Glucose 181 mg/dL (65-115) H 11/29/24 16:20 Calculated Osmolality 287 mOsm/kg (285-295) 11/29/24 16:20 Calcium 9.0 mg/dL (8.5-10.5) 11/29/24 16:20 Total Bilirubin 0.7 mg/dL (0.15-1.2) 11/29/24 16:20 AST 47 U/L (0-32) H 11/29/24 16:20 ALT 25 U/L (0-33) 11/29/24 16:20 Alkaline Phosphatase 112 U/L (35-105) H 11/29/24 16:20 Total Protein 7.8 g/dL (6.6-8.7) 11/29/24 16:20 Albumin 4.3 g/dL (3.5-5.2) 11/29/24 16:20 Globulin 3.5 g/dL (1.3-4.6) 11/29/24 16:20 Lipase 25 U/L (13-60) 11/29/24 16:20 HCG, Qual Negative (Negative) 11/29/24 16:20 No radiology studies performed this visit Discharge Plan Discharge Patient Disposition: Home Clinical Impression: Gastroenteritis Condition: Stable Prescriptions: New ondansetron 4 mg tablet,disintegrating 4 mg PO Q8H PRN (Reason: nausea and vomiting) Qty: 14 0RF No Action gabapentin 300 mg capsule 300 mg PO TID sertraline [Zoloft] 50 mg tablet 50 mg PO DAILY hydrocodone-acetaminophen 5-325 mg tablet 1 tab PO Q8H PRN (Reason: pain (scale score 7-10)) Qty: 7 0RF promethazine 25 mg tablet 25 mg PO Q6H PRN (Reason: nausea and vomiting) Qty: 20 0RF Discharge Orders: Discharge ED (Routine); Ordered 11/29/24 Ordered By: Eunice Xie Referrals: Lisa Love MD [Primary Care Provider, Family Practice] Patient Instructions: Gastroenteritis (DC), Acute Nausea and Vomiting (DC), Patient Portal & [facility] Instructions Activity Restrictions/Additional Instructions: As we discussed, you need to return to the emergency department for onset of abdominal pain, worsening vomiting, blood in your vomit or stools, bloody diarrhea, fevers, generally feeling worse or unwell, or any other concerns you may have Print Language: Palestinian Coding Level of Care Code ED [facility] Technician for Bebe Sims
[2024-11-29 16:28] LABS: Hematocrit 50.4 % (36-47); Hemoglobin 16.70 g/dL (11.27-16.99); Mean Corpuscular HGB Conc 33.1 g/dL (30-55); Mean Corpuscular Hemoglobin 29.0 pg (27-33); Mean Corpuscular Volume 87.7 fl (85-98); Nucleated Red Blood Cells % 0 %; Platelet Count 210 10^3/cmm (157-399); Red Blood Count 5.75 10^6/uL (3.85-5.65); White Blood Count 12.55 10^3/uL (3.29-11.43)
[2024-11-29] MEDS: ondansetron 2 mg/ML SDV 2 mL 4 MG IVP (16:35)
[2024-11-29 16:48] LABS: Alanine Aminotransferase 25 U/L (0-33); Albumin Level 4.3 g/dL (3.5-5.2); Alkaline Phosphatase 112 U/L (35-105); Anion Gap 18.6 (5-19); Aspartate Amino Transferase 47 U/L (0-32); Blood Urea Nitrogen 7 mg/dL (6-20); Calcium 9.0 mg/dL (8.5-10.5); Carbon Dioxide 22 mmol/L (22-29); Chloride 100 mmol/L (98-107); Creatinine Clr Calc Pharmacy 115.3751; Globulin 3.5 g/dL (1.3-4.6); Glucose 181 mg/dL (65-115); HCG, Serum Qual Negative (Negative); Lipase 25 U/L (13-60); Osmolality Calculated 287 mOsm/kg (285-295); Potassium 3.6 mmol/L (3.5-5.1); Sodium 137 mmol/L (136-145); Total Protein 7.8 g/dL (6.6-8.7)
[2024-11-29 18:20] LABS: Glucose Urine UA Negative (Normal); Nitrate Urine Negative (Negative); Specific Gravity, Urine 1.024 (1.005-1.030)
[2024-11-29 18:22] LABS: Add Urine Microscopic? YES
== END 2024-11-29 17:39 | disposition home or self-care (01) ==
PROVIDERS: Emergency Provider Physician Assistant; PCP Family Medicine
DX: K52.9 Noninfective gastroenteritis and colitis, unspecified (principal); E11.9 Type 2 diabetes mellitus without complications
CPT/HCPCS: 36415; 80053; 81001; 83690; 84703; 85025; 96361; 96374; 99284; J2405; J7030

== ENCOUNTER → 2025-04-08 11:29 | Outpatient (BNVA) | payer OTHER, SELFPAY | PROVIDERS: PCP Family Medicine; Visit Provider Family Medicine | DX: E78.5 Hyperlipidemia, unspecified (principal); E11.9 Type 2 diabetes mellitus without complications; F31.9 Bipolar disorder, unspecified | CPT/HCPCS: 80053; 80061; 83036 ==

== ENCOUNTER 2025-04-14 05:43 | Inpatient (IN) | payer OTHER, SELFPAY ==
[2025-04-14] VITALS (19 sets, daily range): BP systolic 85–145; BP diastolic 55–101; PULSE 99–113; RESP 16–37; TEMP 36.8; O2SAT 93–97; BMI 37.5
--- NOTE | 2025-04-14 05:52 | ECG_ITS ---
[facility] Date: 2025-04-14 Pat Name: Emani Dixon Department: Room: Gender: Female Office Executive: : 1980 Requested By: Salena Cruz Order Number: [id number] Rey MD: LILA MOISE Measurements Intervals [place] Rate: 106 P: 74 [place]: 144 QRS: 16 QRSD: 85 T: 97 QT: 354 QTc: 471 Interpretive Statements SINUS TACHYCARDIA ST ELEVATION CONSISTENT WITH INJURY, PERICARDITIS, OR EARLY REPOLARIZATION [ST ELEVATION W/O NORMALLY INFLECTED T-WAVE] ABNORMAL QRS-T ANGLE [QRS-T AXIS DIFFERENCE > 60] No previous ECG available for comparison Electronically Signed On 04-15-2025 11:59:46 ARTIST CONSULTANT by LILA MOISE [email or web address]
--- NOTE | 2025-04-14 05:52 | XRR_ITS ---
PROCEDURE INFORMATION: Exam: XR Chest Exam date and time: 04/14/2025 5:51 AM Age: 45 years old Clinical indication: Chest pressure; C/O chest pain TECHNIQUE: Imaging protocol: Radiologic exam of the chest. Views: 1 view. COMPARISON: CR XR chest 2V* [id number] 07/26/2022 11:35 AM FINDINGS: Lungs: Unremarkable. No consolidation. Pleural spaces: Unremarkable. No pleural effusion. No pneumothorax. Heart/Mediastinum: Unremarkable. No cardiomegaly. Bones/joints: Unremarkable. XR/XR chest 1V portable [id number] IMPRESSION: No acute findings.
--- NOTE | 2025-04-14 05:52 | W.ED.CHESTPA ---
HPI - Chest Pain General: Chief Complaint: Chest Pain Stated Complaint: hard to breathe pain behind left breast Time Seen by Provider: 04/14/25 05:48 History of Present Illness: 45-year-old female with a history of obesity, diabetes, hyperlipidemia and bipolar disorder who presents to the emergency room with complaints of chest pain. She says this woke her from sleep at about 1 AM. 4.5 hours ago. She appears slightly pale and diaphoretic. She is clutching at her chest. She describes pressure. She says has been constant. Says it might be a little bit worse when she breathes deep. Says its in her upper abdomen and low chest below her breast. She says she tries to cough but cannot. Slightly hypertensive on presentation systolic of 145 and diastolic of 100. Mildly tachycardic with a heart rate of 105. Related Data Home Medications ?Medication ?Instructions ?Recorded ?Confirmed alprazolam 0.25 mg tablet (Xanax) 0.125 mg PO DAILY Anxiety, 04/08/25 04/08/25 agitation gabapentin 100 mg capsule 100 mg PO DAILY Pain, neuropathy 04/08/25 04/08/25 sertraline 100 mg tablet 100 mg PO DAILY Depression 04/08/25 04/08/25 Previous Rx's ?Medication ?Instructions ?Recorded bupropion HCl 150 mg 24 hr tablet, 150 mg PO QAM #30 tabs 04/08/25 extended release (Wellbutrin XL) Allergies Allergy/AdvReac Type Severity Reaction Status Date / Time sulfamethoxazole (From Allergy Unknown Verified 02/28/23 07:42 Bactrim) trimethoprim (From Bactrim) Allergy Unknown Verified 02/28/23 07:42 Review of Systems Narrative: Constitutional symptoms: Negative except as documented in HPI. Skin symptoms: Negative except as documented in HPI. Eye symptoms: Negative except as documented in HPI. ENMT symptoms: Negative except as documented in HPI. Respiratory symptoms: Negative except as documented in HPI. Cardiovascular symptoms: Negative except as documented in HPI. Gastrointestinal symptoms: Negative except as documented in HPI. Genitourinary symptoms: Negative except as documented in HPI. Musculoskeletal symptoms: Negative except as documented in HPI. Neurologic symptoms: Negative except as documented in HPI. Psychiatric symptoms: Negative except as documented in HPI. Endocrine symptoms: Negative except as documented in HPI. [facility] ED PFS: Medical History Bipolar 1 disorder Hyperlipemia Diabetes mellitus Family History Denies family history of Diabetes CAD (coronary artery disease) Cancer Hypertension Stroke Social History Smoking and tobacco/nicotine status: never used tobacco/nicotine Alcohol intake: current Alcohol intake frequency: 0-2 Drinks per Day Substance/Drug Use: never Lives independently: Yes Household members: none Housing: House Marital status: Single Number of children: 0 Pets and animals: Yes Pets & animals: cat(s) Physical Exam Narrative: EXAM NARRATIVE: General: Alert, patient appears in pain clutching at her chest Skin: Warm. Patient appears somewhat pale and mildly diaphoretic Head: Normocephalic, atraumatic. Neck: Supple, trachea midline. Eye: Extraocular movements are intact. Ears, nose, mouth and throat: mucosa moist. Cardiovascular: Regular, tachycardic, normal peripheral perfusion. Respiratory: Lungs are clear to auscultation, respirations are non-labored, breath sounds are equal, Symmetrical chest wall expansion. Gastrointestinal: Soft, Nontender, Non distended Musculoskeletal: Normal ROM, no deformity. Neurological: Alert and oriented, No focal neurological deficit observed. Psychiatric: Cooperative, appropriate mood & affect. Course Vital Signs: Vital signs: Vital Signs Temperature 98.2 F 04/14/25 05:47 Pulse Rate 104 H 04/14/25 06:27 Respiratory Rate 17 04/14/25 05:47 Blood Pressure 145/100 04/14/25 06:27 Pulse Oximetry 93 04/14/25 06:27 Oxygen Delivery Me thod Room Air 04/14/25 05:47 MDM - Chest Pain Medical Decision Making Medical decision making Patient's reason for coming to the emergency room: Chest pain Social determinants: Patient is employed I reviewed the patient's medical record. 45-year-old female with a history of obesity, diabetes, hyperlipidemia and bipolar disorder I reviewed the patient's current home meds Patient is regularly prescribed Xanax per HEALTH PLAN MANAGER Alternate historians: None Differential diagnosis for patient with chest pain includes but is not limited to and based on the above HPI, review of systems and physical exam: Pneumonia. unstable angina. angina. Acute coronary syndrome / [place]. Pulmonary embolism. Costochondritis / musculoskeletal. Pleurisy. Pericarditis. Esophageal spasm. Pancreatitis. Cholecystitis. Orders placed to evaluate differential diagnosis based on the above differential, HPI and physical exam EKG time 5:58 AM. Rate 106. Sinus tachycardia. ST elevation: In V1/V2. Also V4. Some apparent ST depression in the inferior leads. no ectopy, normal NE & QRS intervals, This was reviewed and interpreted by myself the ER physician at 6:01 AM. I sent this immediately to Dr. Jewell who is on-call for cardiology. He reviewed this and given the patient's presentation Compliance Analyst has been activated Lab Review: Laboratory results were reviewed and interpreted by myself the emergency room physician. Leukocytosis with a white count of 20,000. No anemia. Platelets are normal. No renal failure. Slight acidosis with bicarb of 17. Troponin is elevated at 1500. Lactic acid is elevated at 5. Assessment of risk: Level of risk: Moderate risk patient Hospitalization considerations: Patient is being taken to the Compliance Analyst Clinical decision support: Patient has a heart score 8. Reexamination: I spoke to the patient prior to going to the Compliance Analyst about what was going to be done but we were concerned for. She expresses understanding. She is not requiring any oxygen. She still appears in some distress from pain. Consultation: I spoke Dr. Jewell who is on-call for cardiology who is taking the patient to Compliance Analyst. Assessment and plan: Chest pain Elevated troponin Leukocytosis Lactic acidosis ?Possible STEMI. EKG borderline. However troponin is elevated. Patient went to the Compliance Analyst. She went prior to lactate and troponin being posted. Heparin bolus. 600 mg Plavix. Aspirin. Nitroglycerin. ?There is also concern for sepsis. Leukocytosis with a left shift and lactic acidosis. ?Patient had gone to the Compliance Analyst with these results to come back but I have ordered broad-spectrum antibiotics and a limited amount of fluids. Concern for heart failure with a STEMI. - Limited fluids. 500 cc ordered. -Broad-spectrum antibiotics were ordered. Zyvox and cefepime -Sepsis quality measures. -Lactic acid with a reflex was ordered. -Blood cultures were ordered. ?I reevaluated the patient's volume status after sepsis fluids were given. -I discussed the patient with the hospitalist on-call who is admitting the patient. - Discussed findings and plan with patient. Answered any questions. - All laboratory values were reviewed and interpreted personally by myself, the ER physician - All imaging was reviewed and interpreted personally by myself, the ER physician. - Evaluation and treatment of this problem were appropriate in the emergency setting Critical Care: -I spent a total of 36 minutes of critical care time managing the patient, independent of any other practitioner. -The time involved in the performance of separately reportable procedures was not counted towards critical care time. Lab Data 04/14/25 05:58 04/14/25 05:58 Radiology Impressions Chest X-Ray 04/14/25 05:52 IMPRESSION: No acute findings. Laboratory Results WBC 20.32 10^3/uL (3.29-11.43) H 04/14/25 05:58 RBC 5.16 10^6/uL (3.85-5.65) 04/14/25 05:58 Hgb 15.90 g/dL (11.27-16.99) 04/14/25 05:58 Hct 47.1 % (36-47) H 04/14/25 05:58 MCV 91.3 fl (85-98) 04/14/25 05:58 MCH 30.8 pg (27-33) 04/14/25 05:58 MCHC 33.8 g/dL (30-55) 04/14/25 05:58 RDW 15.0 % (12.1-15.1) 04/14/25 05:58 Plt Count 204 10^3/cmm (157-399) 04/14/25 05:58 MPV 10.3 fL (7.4-10.4) 04/14/25 05:58 Neut % (Auto) 89.4 % 04/14/25 05:58 Lymph % (Auto) 6.5 % 04/14/25 05:58 [place] % (Auto) 3.4 % 04/14/25 05:58 Eos % (Auto) 0.0 % 04/14/25 05:58 Baso % (Auto) 0.3 % 04/14/25 05:58 Neut # (Auto) 18.16 10^3/uL (1.8-7.7) H 04/14/25 05:58 Lymph # (Auto) 1.3 10^3/uL (0.8-4.8) 04/14/25 05:58 [place] # (Auto) 0.7 10^3/uL (0.2-0.9) 04/14/25 05:58 Eos # (Auto) 0.0 10^3/uL (0.0-0.8) 04/14/25 05:58 Baso # (Auto) 0.1 10^3/uL (0.0-0.1) 04/14/25 05:58 Nucleated RBC % (auto) 0 % 04/14/25 05:58 Nucleated RBCs # 0.0 /100WBC 04/14/25 05:58 PT 12.70 SECONDS (12.1-14.9) 04/14/25 05:58 INR 0.89 (0.8-1.2) 04/14/25 05:58 APTT 27.9 SECONDS (23.9-36.7) 04/14/25 05:58 D-Dimer 0.88 ug/mLFEU (0-0.59) H 04/14/25 05:58 Sodium 138 mmol/L (136-145) 04/14/25 05:58 Potassium 4.3 mmol/L (3.5-5.1) 04/14/25 05:58 Chloride 102 mmol/L (98-107) 04/14/25 05:58 Carbon Dioxide 17 mmol/L (22-29) L 04/14/25 05:58 Anion Gap 23.3 (5-19) H 04/14/25 05:58 BUN 7 mg/dL (6-20) 04/14/25 05:58 Creatinine 0.6 mg/dL (0.5-0.9) 04/14/25 05:58 GFR Calculation 109.1 mL/min (90-130) 04/14/25 05:58 Glucose 255 mg/dL (65-115) H 04/14/25 05:58 Calculated Osmolality 293 mOsm/kg (285-295) 04/14/25 05:58 Lactic Acid 4.9 mmol/L (0.5-2.2) H* 04/14/25 05:58 Calcium 9.4 mg/dL (8.5-10.5) 04/14/25 05:58 Total Bilirubin 0.4 mg/dL (0.15-1.2) 04/14/25 05:58 AST 191 U/L (0-32) H 04/14/25 05:58 ALT 43 U/L (0-33) H 04/14/25 05:58 Alkaline Phosphatase 113 U/L (35-105) H 04/14/25 05:58 Troponin T Baseline 1505 ng/L (0-10) H* 04/14/25 05:58 C-Reactive Protein 16.2 mg/L (0.0-4.9) H 04/14/25 05:58 NT-Pro-B Natriuret Pep 1132 pg/mL (0-125) H 04/14/25 05:58 Total Protein 7.7 g/dL (6.6-8.7) 04/14/25 05:58 Albumin 4.8 g/dL (3.5-5.2) 04/14/25 05:58 Globulin 2.9 g/dL (1.3-4.6) 04/14/25 05:58 Lipase 25 U/L (13-60) 04/14/25 05:58 All radiology interpretation(s) finalized by discharge Clincial Decision Support The following clinical decision support tools were used to aid in care of the patient HEART Score -> History: Highly Suspicious, EKG: Significant ST-deviation, Age: Less than 45 yrs, Risk Factors: >/=3 Risk Factors, Troponin: Baseline Trop >45 ng/L. Resulting HEART Score: 8. Discharge Plan Discharge Patient Disposition: Admitted As Inpatient Clinical Impression: Chest pain Condition: Stable Coding Level of Care Code ED Test Center Manager for [facility] Heart Score HEART Score Components History: Highly Suspicious EKG: Significant ST-deviation Age: Less than 45 yrs Risk Factors: >/=3 Risk Factors Troponin: Baseline Trop >45 ng/L HEART Score RESULT HEART Score: 8
[2025-04-14 06:09] LABS: Hematocrit 47.1 % (36-47); Hemoglobin 15.90 g/dL (11.27-16.99); Mean Corpuscular HGB Conc 33.8 g/dL (30-55); Mean Corpuscular Hemoglobin 30.8 pg (27-33); Mean Corpuscular Volume 91.3 fl (85-98); Nucleated Red Blood Cells % 0 %; Platelet Count 204 10^3/cmm (157-399); Red Blood Count 5.16 10^6/uL (3.85-5.65); White Blood Count 20.32 10^3/uL (3.29-11.43)
[2025-04-14] MEDS: heparin 5,000 unit/mL INJ 1 mL IVP (06:14)
[2025-04-14 06:36] LABS: Alanine Aminotransferase 43 U/L (0-33); Albumin Level 4.8 g/dL (3.5-5.2); Alkaline Phosphatase 113 U/L (35-105); Blood Urea Nitrogen 7 mg/dL (6-20); Calcium 9.4 mg/dL (8.5-10.5); Carbon Dioxide 17 mmol/L (22-29); Chloride 102 mmol/L (98-107); Globulin 2.9 g/dL (1.3-4.6); Glucose 255 mg/dL (65-115); Lipase 25 U/L (13-60); Osmolality Calculated 293 mOsm/kg (285-295); Sodium 138 mmol/L (136-145); Total Protein 7.7 g/dL (6.6-8.7)
[2025-04-14 06:38] LABS: Anion Gap 23.3 (5-19); Aspartate Amino Transferase 191 U/L (0-32); Potassium 4.3 mmol/L (3.5-5.1)
--- NOTE | 2025-04-14 06:38 | P.HP_ITS ---
Providers/Chief Complaint 2 Admitting Physician: Gregor Jewell MD/ Cardiology Primary Care Provider: Avel Ann MD Chief Complaint: Chest pain History of Present Illness Emani Dixon is a 45 year old female with past medical history of diabetes and smoking who presented with chest pain for 4 hours. Patient woke up at 1 AM with severe substernal chest pain radiating to shoulders. She was also diaphoretic. EKG showing ST elevation in V1 and lateral leads I and aVL. Review of Systems 2 Card: Reports: chest pain Medications/Allergies Home Medications ?Medication ?Instructions ?Recorded ?Confirmed ?Last Taken ?Type alprazolam 0.25 mg tablet (Xanax) 0.125 mg PO DAILY An xiety, 04/08/25 04/08/25 Unknown History agitation bupropion HCl 150 mg 24 hr tablet, 150 mg PO QAM #30 t abs 04/08/25 04/08/25 Unknown Rx extended release (Wellbutrin XL) gabapentin 100 mg capsule 100 mg PO DAILY Pain, neurop athy 04/08/25 04/08/25 Unknown History sertraline 100 mg tablet 100 mg PO DAILY Depression 1 06/09/24 04/08/25 Unknown History Allergies Allergy/AdvReac Type Severity Reaction Status Date / Time sulfamethoxazole (From Allergy Unknown Verified 02/28/23 07:42 Bactrim) trimethoprim (From Bactrim) Allergy Unknown Verified 02/28/23 07:42 PFSH Acute 2 PFSH: Medical History Bipolar 1 disorder Hyperlipemia Diabetes mellitus Family History Denies family history of Diabetes CAD (coronary artery disease) Cancer Hypertension Stroke Social History Smoking and tobacco/nicotine status: never used tobacco/nicotine Alcohol intake: current Alcohol intake frequency: 0-2 Drinks per Day Substance/Drug Use: never Lives independently: Yes Household members: none Housing: House Marital status: Single Number of children: 0 Pets and animals: Yes Pets & animals: cat(s) Vitals/I&O/Wt Last Vital Signs Temp 98.2 F 04/14/25 05:47 Pulse 104 H 04/14/25 06:27 Resp 17 04/14/25 05:47 BP 145/100 04/14/25 06:27 Pulse Ox 93 04/14/25 06:27 O2 Del Method Room Air 04/14/25 05:47 Weight last 48 hrs Weight 240 lb Physical Exam 2 Narrative: GENERAL: Patient is alert, awake and oriented x3. [] NECK: No jugular vein distension. [] HEENT: No cyanosis. No icterus. No pallor. [] HEART: Regular S1 and S2. No murmur, rub or gallop. [] LUNGS: Clear to auscultate bilaterally. [] CENTRAL NERVOUS SYSTEM: Grossly nonfocal. [] EXTREMITIES: Lower extremities with 1+ edema bilaterally Data 04/14/25 05:58 04/14/25 05:58 Micro: Microbiology 04/14/25 06:23 Blood Culture - Preliminary Blood SPECIMEN COLLECTED 04/14/25 06:15 Blood Culture - Preliminary Blood SPECIMEN COLLECTED A&P Assessment and plan 1. STEMI (ST elevation myocardial infarction): 2. Diabetes mellitus: 3. Tobacco abuse: Plan: Patient has presented with acute ST elevation IN. Has ST elevations in V1 and lateral leads. 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 She has been loaded with aspirin and Plavix. Heparin bolus given. Postprocedure we will obtain echocardiogram. PDMP PDMP Reviewed: Not Reviewed Attestations 2 Medical Necessity Statement*: Care expected to cross 2 midnights. Patient has presented with acute ST elevation IN and going emergently for coronary angiogram Coding Level of Care Code Acute Code for [facility] Diagnoses STEMI (ST elevation myocardial infarction) I21.3 Diabetes mellitus E11.9 Tobacco abuse Z72.0
[2025-04-14 06:41] LABS: Lactic Sepsis W/Reflex 4.9 mmol/L (0.5-2.2); Troponin(5th) Baseline 1505 ng/L (0-10)
[2025-04-14 06:45] LABS: NT Pro B Type Natriuretic Pept 1132 pg/mL (0-125)
[2025-04-14 06:53] LABS: INR 0.89 (0.8-1.2); Prothrombin Time 12.70 SECONDS (12.1-14.9)
[2025-04-14 06:54] LABS: Partial Thromboplastin Time 27.9 SECONDS (23.9-36.7)
[2025-04-14 07:54] LABS: Reflex Lactate Order REFLEX LACTIC ORDERD
--- NOTE | 2025-04-14 08:03 | P.PCN_ITS ---
Procedure Note: Date of procedure: 04/14/25 Pre-procedure diagnosis: Acute ST elevation [place] Post-procedure diagnosis: other (Total thrombotic occlusion of proximal LAD status post PCI with 1 stent) Procedure: Total thrombotic occlusion of proximal LAD. Status post PCI with aspiration thrombectomy and 1 stent placement. Codominant coronary system. Circumflex artery and RCA are patent. Dual antiplatelet therapy with aspirin and Plavix. Continue Aggrastat for 6 hours Obtain echocardiogram Performing Provider: Gregor Jewell Estimated blood loss (mL): 10 Complications: None Condition: stable Disposition: ICU Coding Level of Care Code Acute Code for [facility]
--- NOTE | 2025-04-14 08:36 | USCV_ITS ---
Emani Dixon Age: 45 Gender: F : 1980 Exam Date: 04/14/2025 10:55 Ordering Phys: Eunice Tena NP Technologist: SHOSHANA Exam Location[place] [facility] [place] Indication: Stemi BP: 110 / 64 HR: 108 Rhythm: Sinus Technical Quality: Adequate MEASUREMENTS (Male / Female) Normal Values 2D ECHO LV Diastolic Diameter PLAX 4.9 cm 4.2 - 5.9 / 3.9 - 5.3 cm IVS Diastolic Thickness 0.8 cm 0.6 - 1.0 / 0.6 - 0.9 cm IVS Systolic Thickness 1.0 cm LVPW Diastolic Thickness 0.9 cm 0.6 - 1.0 / 0.6 - 0.9 cm LVPW Systolic Thickness 1.1 cm LVOT Diameter 1.9 cm LV Ejection Fraction 2D Teich 4.7 % LV Ejection Fraction MOD 4C 50.2 % LV Ejection Fraction MOD 2C 52.9 % LV Ejection Fraction 2C AL 52.3 % LA Diameter 2.6 cm RA Systolic Volume 4C AL 32.0 ml RA Systolic Volume 4C MOD 31.6 ml Aorta at Sinotubular Diameter 2.3 cm M-MODE LA Ao Ratio MM 1.1 AV Cusp Separation MM 1.4 cm DOPPLER AV Peak Velocity 105.0 cm/s LVOT Peak Velocity 99.0 cm/s AV Area Cont Eq vti 2.7 cm squared AV Area Cont Eq pk 2.7 cm squared MV Peak Velocity 79.0 cm/s MV Area PHT 10.2 cm squared Mitral E to A Ratio 0.7 TR Peak Velocity 66.0 cm/s TR Peak Gradient 1.7 mmHg TV Peak E Velocity 72.0 cm/s PV Peak Velocity 75.0 cm/s FINDINGS Left Ventricle Mildly increased left ventricular cavity size. Moderately decreased left ventricular systolic function. Left ventricular ejection fraction is estimated at 40 %. There appeared to be mid to distal anterior apical and inferolateral wall left ventricle wall akinesis suggestive of ischemic heart disease.Grade I/IV diastolic dysfunction (abnormal relaxation filling pattern), normal to mildly elevated filling pressures. Right Ventricle Normal right ventricular size and systolic function. Right Atrium Normal right atrial size. Left Atrium Normal left atrial size. IA Septum Normal appearance of the interatrial septum. Mitral Valve Normal mitral valve structure. No mitral valve stenosis or regurgitation. Aortic Valve Mild aortic valve calcification. No aortic valve stenosis. Trace aortic valve regurgitation. Tricuspid Valve Normal tricuspid valve structure. No tricuspid valve stenosis or regurgitation. Normal pulmonary pressure. Pulmonic Valve Normal pulmonic valve structure. No pulmonic valve stenosis or regurgitation. Pericardium No pericardial effusion. Aorta Normal diameter of the aortic root and ascending thoracic aorta. IVC Normal IVC diameter. CONCLUSIONS Mildly increased left ventricular cavity size. Moderately decreased left ventricular systolic function. Left ventricular ejection fraction is estimated at 40 %. There appeared to be mid to distal anterior apical and inferolateral wall left ventricle wall akinesis suggestive of ischemic heart disease.Grade I/IV diastolic dysfunction (abnormal relaxation filling pattern), normal to mildly elevated filling pressures. No significant valvular abnormalities. There is no pericardial effusion. Right atrial pressure is around 5 mm of mercury. Abeba Crouch MD (Electronically Signed) Final Date: 14 April 2025 12:46 S
--- NOTE | 2025-04-14 08:45 | ECG_ITS ---
[facility] Date: 2025-04-14 Pat Name: Emani Dixon Department: Room: ICU01 Gender: Female Food Science Technician: : 1980 Requested By: Eunice Tena Order Number: [id number] Rey MD: LILA MOISE Measurements Intervals [place] Rate: 100 P: 0 GA: 0 QRS: 83 QRSD: 93 T: 95 QT: 401 QTc: 518 Interpretive Statements ATRIAL FLUTTER/TACHYCARDIA WITH RAPID VENTRICULAR RESPONSE ANTEROSEPTAL MYOCARDIAL INFARCTION , PROBABLY RECENT [40+ ms Q WAVE IN V1-V4] ACUTE [place] Compared to ECG 04/14/2025 05:58:42 Myocardial infarct finding now present Sinus tachycardia no longer present ST (T wave) deviation no longer present Early repolarization no longer present Electronically Signed On 04-16-2025 20:44:30 MEDICAL EDUCATOR by LILA MOIES [id number] [id number]
[2025-04-14 09:28] LABS: Lactic Acid level (Lactate) 2.3 mmol/L (0.5-2.2)
[2025-04-14] MEDS: tirofiban 5 MG/100 ML PREMIX 19.6 MG IV ×2 (10:25→14:39)
[2025-04-14] MEDS: nitroglycerin drip 50 MG/250 ML PREMIX IV (11:42)
[2025-04-14 12:28] LABS: Troponin 5 6HR > 10000 ng/L (0-10)
--- NOTE | 2025-04-14 13:57 | PC.PHAR ---
Verified medications with pts' preferred pharmacy with last fill date and day supply entered in pharmacy notes.
--- NOTE | 2025-04-14 14:21 | ECG_ITS ---
[employer] Test Date: 2025-04-14 Pat Name: Emani Dixon Department: Room: ICU01 Gender: Female Marketing And Public Relations Manager: : 1980 Requested By: Eunice Tena Order Number: [id number] Reading MD: LILA MOISE Measurements Intervals [place] Rate: 109 P: 59 VT: 155 QRS: 83 QRSD: 88 T: 105 QT: 365 QTc: 493 Interpretive Statements SINUS TACHYCARDIA LOW QRS VOLTAGE IN EXTREMITY LEADS [QRS DEFLECTION < 0.5 mV IN LIMB LEADS] ANTEROSEPTAL MYOCARDIAL INFARCTION , PROBABLY RECENT [40+ ms Q WAVE IN V1-V4] ACUTE [place] Compared to ECG 04/14/2025 09:49:14 Low QRS voltage now present Atrial flutter no longer present Myocardial infarct finding still present Electronically Signed On 04-16-2025 20:41:24 SOCIAL MEDIA DIRECTOR by LILA MOISE [id number] [id number]
--- NOTE | 2025-04-14 18:45 | P.PN_ITS ---
<Statement entered by Gregor Jewell M.D - 04/20/25 11:07> Patient was cared for in conjunction with an advanced practice practitioner.? I reviewed the chart and all pertinent data including imaging, telemetry, and laboratory results.? I discussed the patient in detail with the advanced practice practitioner.? Please see? their documentation for progress note, testing results and agreed upon plan of care for the patient. Subjective 2 Subjective: Patient seen today. She is status post PCI of the proximal LAD. Continue to have chest discomfort under the left. States this is the same pain as before when she came in. EKG showed no acute changes. Vitals/I&O/Wt Last Vital Signs Temp 98.2 F 04/14/25 05:47 Pulse 104 H 04/14/25 10:00 Resp 19 H 04/14/25 10:00 BP 128/94 04/14/25 10:00 Pulse Ox 96 04/14/25 09:00 O2 Del Method Room Air 04/14/25 08:30 04/14/25 04/14/25 04/14/25 06:59 14:59 22:59 Intake Total 96.423 / 96.423 Output Total 350 / 350 700 / 1050 Balance -253.577 / -253.577 -700 / -953.577 Weight last 48 hrs Weight 240 lb Physical Exam 2 Narrative: General: No apparent distress Neck: No carotid bruit bilaterally Muskuloskeletal: Full ROM Respiratory: Normal respiratory effort, clear to auscultation bilaterally throughout all lung malin, no use of accessory muscles Cardio: No JVD, regular rate, regular rhythm, S1 S2 normal, no murmurs, peripheral pulses 2+ radial palpated bilaterally Extremities: Full ROM, normal, normal capillary refill, no cyanosis or edema Neuro: Alert and oriented x4 Psych: Affect normal Skin: No rashes or lesions noted, no wounds Data 04/14/25 05:58 04/14/25 05:58 Micro: Microbiology 04/14/25 06:23 Blood Culture - Preliminary Blood SPECIMEN COLLECTED 04/14/25 06:15 Blood Culture - Preliminary Blood SPECIMEN COLLECTED A&P Assessment and plan 1. STEMI (ST elevation myocardial infarction): 2. Diabetes mellitus: 3. Tobacco abuse: Plan: Patient is status post stent to the proximal LAD. Continue aspirin and Plavix. Start metoprolol 25 twice daily as patient is slightly tachycardic. Will hold atorvastatin tonight as patient's liver functions are elevated and reassess in the a.m. Will obtain echo with further recommendations to follow. X-ray was normal. Chest discomfort is more pleuritic in nature. Monitor labs in the AM. White cell increase likely from inflammation. will Reevaluate. PDMP PDMP Reviewed: Not Reviewed Attestations 2 Medical Necessity Statement*: Patient stay expected to cross 2 midnights due to STEMI requiring stent to the proximal LAD Coding Level of Care Code Acute Code for [facility] Diagnoses STEMI (ST elevation myocardial infarction) I21.3 Diabetes mellitus E11.9 Tobacco abuse Z72.0
[2025-04-14] MEDS: morphine 4 mg/mL SDV 1 mL 2 MG IVP (19:14)
--- NOTE | 2025-04-14 19:37 | PC.NURSE ---
In bedisde report, Valarie stated erin PO was placed in a med. cup and placed on pt bedside table while Dr. Jewell was in the room. Pt and pt mother state pt never received medicine. Pt and pt mother state medicine was last taken mid morning and we kept getting promised 20 minutes until more would be given . See MAR.
[2025-04-15] VITALS (49 sets, daily range): BP systolic 79–129; BP diastolic 50–82; PULSE 89–111; RESP 14–35; O2SAT 90–96
[2025-04-15] MEDS: morphine 4 mg/mL SDV 1 mL 2 MG IVP ×3 (00:14→14:15)
[2025-04-15 05:30] LABS: Hematocrit 42.3 % (36-47); Hemoglobin 13.60 g/dL (11.27-16.99); Mean Corpuscular HGB Conc 32.2 g/dL (30-55); Mean Corpuscular Hemoglobin 30.2 pg (27-33); Mean Corpuscular Volume 93.8 fl (85-98); Nucleated Red Blood Cells % 0 %; Platelet Count 143 10^3/cmm (157-399); Red Blood Count 4.51 10^6/uL (3.85-5.65); White Blood Count 13.83 10^3/uL (3.29-11.43)
[2025-04-15 05:57] LABS: Anion Gap 15.6 (5-19); Blood Urea Nitrogen 8 mg/dL (6-20); Calcium 8.6 mg/dL (8.5-10.5); Carbon Dioxide 21 mmol/L (22-29); Chloride 101 mmol/L (98-107); Glucose 192 mg/dL (65-115); Osmolality Calculated 282 mOsm/kg (285-295); Potassium 3.6 mmol/L (3.5-5.1); Sodium 134 mmol/L (136-145)
--- NOTE | 2025-04-15 12:19 | P.PN_ITS ---
<Statement entered by Gregor Jewell M.D - 04/20/25 11:41> Patient was cared for in conjunction with an advanced practice practitioner.? I reviewed the chart and all pertinent data including imaging, telemetry, and laboratory results.? I discussed the patient in detail with the advanced practice practitioner.? Please see? their documentation for progress note, testing results and agreed upon plan of care for the patient. Patient's chest pain is secondary to post UT pericarditis. Start high dose aspirin 650 TID for 2 weeks. Continue plavix Subjective 2 Subjective: Patient was doing well on my assessment this morning without complaints of any pain. States morphine improved pain. However when Dr. Jewell rounded on patient she was complaining of the same pleuritic pain under the left breast. Nitro drip and fluids have been stopped. Vitals/I&O/Wt Last Vital Signs Temp 98.2 F 04/14/25 05:47 Pulse 92 04/15/25 08:00 Resp 23 H 04/15/25 08:00 BP 91/60 04/15/25 08:00 Pulse Ox 91 04/15/25 08:00 O2 Del Method Room Air 04/14/25 08:30 04/14/25 04/15/25 04/15/25 22:59 06:59 14:59 Intake Total 163.463 / 259.886 16.1 / 275.986 480 / 480 Output Total 700 / 1050 Balance -536.537 / -790.114 16.1 / -774.014 480 / 480 Weight last 48 hrs Weight 240 lb Physical Exam 2 Narrative: General: No apparent distress Neck: No carotid bruit bilaterally Muskuloskeletal: Full ROM Respiratory: Normal respiratory effort, clear to auscultation bilaterally throughout all lung malin, no use of accessory muscles Cardio: No JVD, regular rate, regular rhythm, S1 S2 normal, no murmurs, peripheral pulses 2+ radial palpated bilaterally Extremities: Full ROM, normal, normal capillary refill, no cyanosis or edema Neuro: Alert and oriented x4 Psych: Affect normal Skin: No rashes or lesions noted, no wounds Data 04/15/25 04:35 04/15/25 04:35 Micro: Microbiology 04/14/25 09:15 Urine Culture - Preliminary Urine,Voided 04/14/25 06:23 Blood Culture - Preliminary Blood NEGATIVE TO DATE 04/14/25 06:15 Blood Culture - Preliminary Blood NEGATIVE TO DATE A&P Assessment and plan 1. STEMI (ST elevation myocardial infarction): 2. Diabetes mellitus: 3. Tobacco abuse: Plan: Patient is status post stent to the proximal LAD. Continue aspirin and Plavix. Start metoprolol 25 twice daily as patient is slightly tachycardic. Will hold atorvastatin tonight as patient's liver functions are elevated and reassess now. Echo showed EF of 45%. X-ray was normal. Chest discomfort is more pleuritic in nature. Will increase aspirin to 625 TID and give morphine. Monitor labs in the AM. White cell decreased. will Reevaluate. PDMP PDMP Reviewed: Not Reviewed Attestations 2 Medical Necessity Statement*: Patient stay expected to cross 2 midnights due to STEMI requiring stent to the proximal LAD Coding Level of Care Code Acute Code for [facility] Diagnoses STEMI (ST elevation myocardial infarction) I21.3 Diabetes mellitus E11.9 Tobacco abuse Z72.0
[2025-04-15 13:18] LABS: Alanine Aminotransferase 67 U/L (0-33); Albumin Level 3.7 g/dL (3.5-5.2); Alkaline Phosphatase 87 U/L (35-105); Anion Gap 14.8 (5-19); Aspartate Amino Transferase 172 U/L (0-32); Blood Urea Nitrogen 9 mg/dL (6-20); Calcium 8.8 mg/dL (8.5-10.5); Carbon Dioxide 23 mmol/L (22-29); Chloride 102 mmol/L (98-107); Globulin 3.1 g/dL (1.3-4.6); Glucose 161 mg/dL (65-115); Osmolality Calculated 284 mOsm/kg (285-295); Potassium 3.8 mmol/L (3.5-5.1); Sodium 136 mmol/L (136-145); Total Protein 6.8 g/dL (6.6-8.7)
--- NOTE | 2025-04-15 20:17 | ECG_ITS ---
[employer] Test Date: 2025-04-15 Pat Name: Emani Dixon Department: Room: ICU01 Gender: Female Unix Administrator: : 1980 Requested By: Gregor Jewell Order Number: [id number] Reading MD: LILA MOISE Measurements Intervals [place] Rate: 96 P: 42 FL: 160 QRS: -43 QRSD: 113 T: 105 QT: 384 QTc: 486 Interpretive Statements SINUS RHYTHM LEFT AXIS DEVIATION [QRS AXIS < -30] LOW QRS VOLTAGE IN PRECORDIAL LEADS [QRS DEFLECTION < 1.0 mV IN CHEST LEADS] PATTERN CONSISTENT WITH PULMONARY DISEASE SEPTAL MYOCARDIAL INFARCTION , OF INDETERMINATE AGE [40+ ms Q WAVE IN V1/V2] MODERATE T-WAVE ABNORMALITY, CONSIDER ANTERIOR ISCHEMIA [-0.1+ mV T-WAVE IN V3/V4] Compared to ECG 04/14/2025 14:21:21 Left-axis deviation now present T-wave abnormality now present Electronically Signed On 04-16-2025 20:36:43 SENIOR ACTUARIAL ANALYST by LILA MOISE [id number] [id number]
--- NOTE | 2025-04-15 20:41 | PC.NURSE ---
Pt was up to the restroom and went back to bed, upon return stated her heart felt fluttery . Noted sinus arrhythmia with PAC's on tele monitoring, pt denied any chest pain, chest tightness, arm pain, shortness of breath, etc. EKG obtained and was sinus rhythm, with no marked changes from previous. Will continue to monitor.
[2025-04-16] VITALS (48 sets, daily range): BP systolic 76–105; BP diastolic 43–75; PULSE 68–102; RESP 10–39; TEMP 36.3; O2SAT 93–97
[2025-04-16] MEDS: norepinephrine 4 MG/250 ML BAG 7.5 MG IV (01:07)
[2025-04-16 04:41] LABS: Platelet Count 161 10^3/cmm (157-399)
[2025-04-16 09:16] LABS: Hematocrit 43.3 % (36-47); Hemoglobin 14.00 g/dL (11.27-16.99); Mean Corpuscular HGB Conc 32.3 g/dL (30-55); Mean Corpuscular Hemoglobin 30.6 pg (27-33); Mean Corpuscular Volume 94.7 fl (85-98); Nucleated Red Blood Cells % 0 %; Platelet Count 136 10^3/cmm (157-399); Red Blood Count 4.57 10^6/uL (3.85-5.65); White Blood Count 10.55 10^3/uL (3.29-11.43)
[2025-04-16 09:39] LABS: Alanine Aminotransferase 56 U/L (0-33); Albumin Level 3.5 g/dL (3.5-5.2); Alkaline Phosphatase 86 U/L (35-105); Anion Gap 15.3 (5-19); Aspartate Amino Transferase 94 U/L (0-32); Blood Urea Nitrogen 8 mg/dL (6-20); Calcium 8.8 mg/dL (8.5-10.5); Carbon Dioxide 24 mmol/L (22-29); Chloride 101 mmol/L (98-107); Globulin 3.2 g/dL (1.3-4.6); Glucose 190 mg/dL (65-115); Osmolality Calculated 287 mOsm/kg (285-295); Potassium 3.3 mmol/L (3.5-5.1); Sodium 137 mmol/L (136-145); Total Protein 6.7 g/dL (6.6-8.7)
[2025-04-16 09:54] LABS: Magnesium 2.1 mg/dL (1.7-2.3)
--- NOTE | 2025-04-16 15:26 | P.PN_ITS ---
<Statement entered by Gregor Jewell M.D - 04/20/25 12:18> Patient was cared for in conjunction with an advanced practice practitioner.? I reviewed the chart and all pertinent data including imaging, telemetry, and laboratory results.? I discussed the patient in detail with the advanced practice practitioner.? Please see? their documentation for progress note, testing results and agreed upon plan of care for the patient. Subjective 2 Subjective: Patient doing well today with no complaints. Still requiring Levophed. Metoprolol currently on hold. Vitals/I&O/Wt Last Vital Signs Temp 98.2 F 04/14/25 05:47 Pulse 68 04/16/25 14:00 Resp 17 04/16/25 09:00 BP 84/63 04/16/25 09:00 Pulse Ox 94 04/15/25 14:15 O2 Del Method Room Air 04/14/25 08:30 04/16/25 04/16/25 04/16/25 06:59 14:59 22:59 Intake Total 21.625 / 741.625 720 / 720 Balance 21.625 / 741.625 720 / 720 Weight last 48 hrs Weight 238 lb Physical Exam 2 Narrative: General: No apparent distress Neck: No carotid bruit bilaterally Muskuloskeletal: Full ROM Respiratory: Normal respiratory effort, clear to auscultation bilaterally throughout all lung malin, no use of accessory muscles Cardio: No JVD, regular rate, regular rhythm, S1 S2 normal, no murmurs, peripheral pulses 2+ radial palpated bilaterally Extremities: Full ROM, normal, normal capillary refill, no cyanosis or edema Neuro: Alert and oriented x4 Psych: Affect normal Skin: No rashes or lesions noted, no wounds Data 04/16/25 08:52 04/16/25 08:52 Micro: Microbiology 04/14/25 09:15 Urine Culture - Final Urine,Voided A&P Assessment and plan 1. STEMI (ST elevation myocardial infarction): 2. Diabetes mellitus: 3. Tobacco abuse: Plan: Patient is status post stent to the proximal LAD. Continue aspirin and Plavix. Hold metoprolol 25 twice daily as patient is hypotensive requiring Levo low dose at 2. Continue to wean levo as tolerated to keep MAP of 65. Will hold atorvastatin tonight as patient's liver functions are elevated but continue to resolve. Echo showed EF of 45%. X-ray was normal. Chest discomfort has resolved. Will continue aspirin to 625 TID and hold morphine due to hypotension. Monitor labs in the AM. White cell decreased. will Reevaluate. Give potassium 40 meq now. Recheck labs in the AM. PDMP PDMP Reviewed: Not Reviewed Attestations 2 Medical Necessity Statement*: Patient stay expected to cross 2 midnights due to STEMI requiring stent to the proximal LAD Coding Level of Care Code Acute Code for [facility] Diagnoses STEMI (ST elevation myocardial infarction) I21.3 Diabetes mellitus E11.9 Tobacco abuse Z72.0
[2025-04-17] VITALS (16 sets, daily range): BP systolic 85–112; BP diastolic 43–76; PULSE 76–85; RESP 15–22; TEMP 36.6; O2SAT 89–98
[2025-04-17 03:55] LABS: Hematocrit 41.8 % (36-47); Hemoglobin 13.40 g/dL (11.27-16.99); Mean Corpuscular HGB Conc 32.1 g/dL (30-55); Mean Corpuscular Hemoglobin 30.8 pg (27-33); Mean Corpuscular Volume 96.1 fl (85-98); Nucleated Red Blood Cells % 0 %; Platelet Count 131 10^3/cmm (157-399); Red Blood Count 4.35 10^6/uL (3.85-5.65); White Blood Count 8.13 10^3/uL (3.29-11.43)
[2025-04-17 04:10] LABS: Alanine Aminotransferase 38 U/L (0-33); Albumin Level 3.1 g/dL (3.5-5.2); Alkaline Phosphatase 75 U/L (35-105); Anion Gap 13.5 (5-19); Aspartate Amino Transferase 44 U/L (0-32); Blood Urea Nitrogen 11 mg/dL (6-20); Calcium 8.1 mg/dL (8.5-10.5); Carbon Dioxide 23 mmol/L (22-29); Chloride 106 mmol/L (98-107); Globulin 3.1 g/dL (1.3-4.6); Glucose 131 mg/dL (65-115); Osmolality Calculated 289 mOsm/kg (285-295); Potassium 3.5 mmol/L (3.5-5.1); Sodium 139 mmol/L (136-145); Total Protein 6.2 g/dL (6.6-8.7)
--- NOTE | 2025-04-17 09:38 | PM.DCS ---
Discharge Providers Date of Admission: 04/14/25 08:21 Date of Discharge: April 17, 2025 Attending Provider at Admission: Gregor Jewell M.D Attending Provider at Discharge: Gregor Jewell M.D Primary Care Provider: Avel Ann MD Diagnoses at Discharge Discharge Diagnosis 1. STEMI (ST elevation myocardial infarction): 2. Tobacco abuse: Reason for Visit Reason for Visit: Chest pain Brief History: 45 year old female with past medical history of diabetes and smoking who presented with chest pain for 4 hours. Patient woke up at 1 AM with severe substernal chest pain radiating to shoulders. She was also diaphoretic. EKG showing ST elevation in V1 and lateral leads I and aVL. Hospital Course Hospital Course Proximal LAD had total multiple occlusion with large thrombus burden. Aspiration thrombectomy was performed and PCI was done. Patient had post IL pericarditis. Was put on higher dose of aspirin and Plavix. In 2 weeks aspirin dose will be reduced to 81 mg daily. Her chest pain has improved. Echo shows EF is around 40%. Patient was briefly on levophed. She was discharged home in a stable condition. Patient had elevated LFTs, statin was put on hold but as outpatient will start high intensity statin therapy Physical Exam Narrative: GENERAL: Patient is alert, awake and oriented x3. [] NECK: No jugular vein distension. [] HEENT: No cyanosis. No icterus. No pallor. [] HEART: Regular S1 and S2. No murmur, rub or gallop. [] LUNGS: Clear to auscultate bilaterally. [] CENTRAL NERVOUS SYSTEM: Grossly nonfocal. [] EXTREMITIES: Lower extremities with 1+ edema bilaterally Discharge Data Studies Completed and Pending Completed Studies During Hospitalization Category Date Time Status XR chest 1V portable [id number] Stat Exams 04/14/25 05:52 Completed CV. 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 Laboratory Results WBC 8.13 10^3/uL (3.29-11.43) 04/17/25 03:18 RBC 4.35 10^6/uL (3.85-5.65) 04/17/25 03:18 Hgb 13.40 g/dL (11.27-16.99) 04/17/25 03:18 Hct 41.8 % (36-47) 04/17/25 03:18 MCV 96.1 fl (85-98) 04/17/25 03:18 MCH 30.8 pg (27-33) 04/17/25 03:18 MCHC 32.1 g/dL (30-55) 04/17/25 03:18 RDW 14.4 % (12.1-15.1) 04/17/25 03:18 Plt Count 131 10^3/cmm (157-399) L 04/17/25 03:18 MPV 10.7 fL (7.4-10.4) H 04/17/25 03:18 Neut % (Auto) 60.2 % 04/17/25 03:18 Lymph % (Auto) 32.1 % 04/17/25 03:18 [place] % (Auto) 6.5 % 04/17/25 03:18 Eos % (Auto) 0.4 % 04/17/25 03:18 Baso % (Auto) 0.6 % 04/17/25 03:18 Neut # (Auto) 4.89 10^3/uL (1.8-7.7) 04/17/25 03:18 Lymph # (Auto) 2.6 10^3/uL (0.8-4.8) 04/17/25 03:18 [place] # (Auto) 0.5 10^3/uL (0.2-0.9) 04/17/25 03:18 Eos # (Auto) 0.0 10^3/uL (0.0-0.8) 04/17/25 03:18 Baso # (Auto) 0.1 10^3/uL (0.0-0.1) 04/17/25 03:18 Nucleated RBC % (auto) 0 % 04/17/25 03:18 Nucleated RBCs # 0.0 /100WBC 04/17/25 03:18 PT 12.70 SECONDS (12.1-14.9) 04/14/25 05:58 INR 0.89 (0.8-1.2) 04/14/25 05:58 APTT 27.9 SECONDS (23.9-36.7) 04/14/25 05:58 D-Dimer 0.88 ug/mLFEU (0-0.59) H 04/14/25 05:58 Sodium 139 mmol/L (136-145) 04/17/25 03:18 Potassium 3.5 mmol/L (3.5-5.1) 04/17/25 03:18 Chloride 106 mmol/L (98-107) 04/17/25 03:18 Carbon Dioxide 23 mmol/L (22-29) 04/17/25 03:18 Anion Gap 13.5 (5-19) 04/17/25 03:18 BUN 11 mg/dL (6-20) 04/17/25 03:18 Creatinine 0.7 mg/dL (0.5-0.9) 04/17/25 03:18 GFR Calculation 91.3 mL/min (90-130) 04/17/25 03:18 Glucose 131 mg/dL (65-115) H 04/17/25 03:18 POC Glucose 175 mg/dL (70-110) H 04/17/25 07:14 Calculated Osmolality 289 mOsm/kg (285-295) 04/17/25 03:18 Lactic Acid 4.9 mmol/L (0.5-2.2) H* 04/14/25 05:58 Lactic Acid (Sepsis) 2.3 mmol/L (0.5-2.2) H 04/14/25 08:56 Calcium 8.1 mg/dL (8.5-10.5) L 04/17/25 03:18 Magnesium 2.1 mg/dL (1.7-2.3) 04/16/25 08:52 Total Bilirubin 0.3 mg/dL (0.15-1.2) 04/17/25 03:18 AST 44 U/L (0-32) H 04/17/25 03:18 ALT 38 U/L (0-33) H 04/17/25 03:18 Alkaline Phosphatase 75 U/L (35-105) 04/17/25 03:18 Troponin T Baseline 1505 ng/L (0-10) H* 04/14/25 05:58 Troponin T 60 Minute > 65431 ng/L (0-10) H 04/14/25 08:56 Delta Troponin T 8495.30357 ABS# (0-10) H* 04/14/25 08:56 Troponin T Hi Sens 6Hr > 18019 ng/L (0-10) H 04/14/25 11:41 Troponin T Hi Sens 6Hr Delta 8495.76846 ng/L (0-12) H* 04/14/25 11:41 C-Reactive Protein 16.2 mg/L (0.0-4.9) H 04/14/25 05:58 NT-Pro-B Natriuret Pep 1132 pg/mL (0-125) H 04/14/25 05:58 Total Protein 6.2 g/dL (6.6-8.7) L 04/17/25 03:18 Albumin 3.1 g/dL (3.5-5.2) L 04/17/25 03:18 Globulin 3.1 g/dL (1.3-4.6) 04/17/25 03:18 Lipase 25 U/L (13-60) 04/14/25 05:58 Vitals Last Vital Signs Temp 97.3 F L 04/16/25 16:30 Pulse 80 04/17/25 07:00 Resp 19 H 04/17/25 07:00 BP 95/56 04/17/25 07:00 Pulse Ox 91 04/17/25 07:00 O2 Del Method Room Air 04/14/25 08:30 Discharge Plan Discharge Patient Disposition: Home Condition: Stable Prescriptions: New aspirin 325 mg Tablet 650 mg PO TID Qty: 120 0RF clopidogrel 75 mg Tablet 75 mg PO DAILY Qty: 90 3RF Continued sertraline 100 mg tablet 100 mg PO DAILY gabapentin 100 mg capsule 100 mg PO DAILY alprazolam [Xanax] 0.25 mg tablet 0.125 mg PO DAILY bupropion HCl [Wellbutrin XL] 150 mg tablet extended release 24 hr 150 mg PO QAM Qty: 30 11RF pantoprazole 40 mg tablet,delayed release (DR/EC) 40 mg PO DAILY albuterol sulfate 90 mcg/actuation HFA aerosol inhaler 2 puff INHALATION Q4H PRN (Reason: Wheezing) metformin 500 mg tablet extended release 24 hr 500 mg PO QPM Discontinued propranolol 10 mg tablet 10 mg PO DAILY simvastatin 20 mg tablet 20 mg PO DAILY Discharge Order = DC NOW: Discharge Order (Routine); Ordered 04/17/25 Ordered By: Gregor Jewell Referrals: Gregor Jewell M.D [Physician, Cardiology] - 7-10 days Avel Ann MD [Primary Care Provider, [facility]] Discharge Diet: Cardiac and Diabetic Discharge Activity: Increase activity as tolerated Patient Instructions: Coronary Angioplasty (DC), Opioid Safety, Patient Portal & [facility] Instructions Discharge Attestations Time Spent in Discharge Care*: greater than 30 min Quality Metrics Clinical Quality Measures [ Acute Myocardial Infaction { Clinical Trial Participant: No; Contraindication to aspirin: None; Aspirin prescribed; Contraindication to statin: None; Statin prescribed and Other (LFTs elevated. Will be started as outpatient); Contraindication to PCI: None; PCI performed;}] Coding Level of Care Code Acute Code for [facility] Fwd Diagnoses STEMI (ST elevation myocardial infarction) I21.3 Diabetes mellitus E11.9 Tobacco abuse Z72.0
== END 2025-04-17 10:15 | disposition home or self-care (01) | DRG 360 ==
LOC: ER 05:52 → CCL 06:19 → ICU 08:22
PROVIDERS: Nurse Practitioner Family; Admitting Provider Internal Medicine; Emergency Provider Emergency Medicine; PCP Family Medicine; Visit Provider Internal Medicine
PROC: 027034Z Dilation of Coronary Artery, One Artery with Drug-eluting Intraluminal Device, Percutaneous Approach (ICD-10-PCS; principal; 2025-04-14 06:30)
PROC: 027034Z Dilation of Coronary Artery, One Artery with Drug-eluting Intraluminal Device, Percutaneous Approach (ICD-10-PCS; 2025-04-14 06:30)
DX: I21.02 ST elevation (STEMI) myocardial infarction involving left anterior descending coronary artery (principal); I31.9 Disease of pericardium, unspecified; E87.20 Acidosis, unspecified; E11.9 Type 2 diabetes mellitus without complications; E66.9 Obesity, unspecified; Z68.37 Body mass index [BMI] 37.0-37.9, adult; E78.5 Hyperlipidemia, unspecified; F31.9 Bipolar disorder, unspecified; R00.0 Tachycardia, unspecified; I10 Essential (primary) hypertension; Z72.0 Tobacco use; Z79.82 Long term (current) use of aspirin; Z79.02 Long term (current) use of antithrombotics/antiplatelets; Z79.84 Long term (current) use of oral hypoglycemic drugs; Z82.3 Family history of stroke; Z82.49 Family history of ischemic heart disease and other diseases of the circulatory system
CPT/HCPCS: 36415; 36416; 71045; 80048; 80053; 82962; 83605; 83690; 83735; 83880; 84484; 85025; 85049; 85347; 85378; 85610; 85730; 86140; 87040; 87086; 92973; 92978; 93005; 93458; 96372; 96374; 99152; 99153; 99285; C1725; C1753; C1757; C1769; C1874; C1887; C1894; C8929; C9606; J1644; J1815; J2250; J2270; J2371; J2405; J3010; J3490; J7030; J9999; Q0162; Q9967

== ENCOUNTER → 2025-04-21 13:52 | Outpatient (BNVA) | payer OTHER, SELFPAY | PROVIDERS: PCP Family Medicine; Visit Provider Family Medicine | DX: I21.3 ST elevation (STEMI) myocardial infarction of unspecified site (principal); E11.9 Type 2 diabetes mellitus without complications | CPT/HCPCS: 80053; 85025 ==